=== PATIENT | female | born 1990 | race Caucasian/White ===

== ENCOUNTER 2021-03-02 11:56 | Emergency (ER) | payer OTHER ==
[2021-03-02 12:06] VITALS: BP 130/80
[2021-03-02] MEDS ORDERED: cephALEXin 250 MG CAPSULE PO STA (12:35)
--- NOTE | 2021-03-02 12:36 | ED Physician Documentation ---
History of Present Illness - Stated complaint Stated Complaint: NECK PX - Chief complaint Chief Complaint: General - History obtained from History obtained from: Patient - History of Present Illness Timing: How many days ago (4) Pain level max: 3 Pain level now: 3 - Additonal information Additional information: 30-year-old female presents to the emergency department stating she had acupuncture done about 4 days ago. She has noticed that there has been redness on the sides of her neck where the acupuncture needles were. She states they have been warm to the touch and painful as well. No drainage. Nothing makes it better or worse. She currently is undergoing IVF. No fevers. No chills. No numbness or tingling. Review of Systems Constitutional: denies: Fever, Chills Ears: denies: Ear pain Nose: denies: Rhinorrhea / runny nose, Congestion Throat: denies: Sore throat Cardiac: denies: Chest pain / pressure, Palpitations Respiratory: denies: Dyspnea, Cough GI: denies: Vomiting, Diarrhea Skin: denies: Rash Musculoskeletal: denies: Neck pain, Back pain Neurologic: denies: Headache PD PAST MEDICAL HISTORY - Past Medical History Past Medical History: No - Past Surgical History Past Surgical History: No - Present Medications Home Medications: Ambulatory Orders Medication Instructions Recorded Confirmed cephALEXin [Keflex] 500 mg PO Q6H #28 cap 03/02/21 - Allergies Allergies/Adverse Reactions: Allergies Allergy/AdvReac Type Severity Reaction Status Date / Time No Known Drug Allergies Allergy Verified 03/02/21 12:02 - Social History Does the pt smoke?: No Smoking Status: Never smoker Does the pt drink ETOH?: No Does the pt have substance abuse?: No - Immunizations Immunizations are current?: Yes - POLST Patient has POLST: No PD ED PE NORMAL - Vitals Vital signs reviewed: Yes - General General: Alert and oriented X 3, No acute distress - HEENT HEENT: Ears normal, Moist mucous membranes, Pharynx benign - Neck Neck: Supple, no meningeal sign, Other (No mastoid tenderness. Normal ear exam. Mild erythema to the posterior lateral aspect of the left and right sides of the neck. No drainage.) - Cardiac Cardiac: RRR - Respiratory Respiratory: No respiratory distress, Clear bilaterally - Abdomen Abdomen: Soft, Non tender, Non distended - Back Back: No spinal TTP - Derm Derm: Warm and dry - Extremities Extremities: Normal ROM s pain - Neuro Neuro: Alert and oriented X 3 Results - Vitals Vitals: Vital Signs - 24 hr 03/02/21 12:02 Temperature 36.5 C Heart Rate 98 Respiratory 16 Rate Blood Pressure 130/80 O2 Saturation 100 Oxygen O2 Source Room air PD MEDICAL DECISION MAKING - ED course Complexity details: considered differential, d/w patient ED course: Patient with what appears to be a mild cellulitis following acupuncture. Will place on Keflex. No evidence of abscess. No evidence of mastoiditis. Patient counseled regarding signs and symptoms for which I believe and urgent re- evaluation would be necessary. Patient with good understanding of and agreement to plan and is comfortable going home at this time This document was made in part using voice recognition software. While efforts are made to proofread this document, sound alike and grammatical errors may occur. Departure - Departure Disposition: 01 Home, Self Care Clinical Impression: Cellulitis Qualifiers: Site of cellulitis: unspecified site Qualified Code(s): L03.90 - Cellulitis, unspecified Condition: Good Instructions: ED Infec Skin Cellulitis Follow-Up: AMBER MOHR ARNP [Primary Care Provider] - Within 1 week Prescriptions: cephALEXin [Keflex] 500 mg PO Q6H #28 cap Comments: Take all antibiotics until gone. This should start to improve over the next 24 to 48 hours. Return if you worsen. Discharge Date/Time: 03/02/21 12:47
== END 2021-03-02 12:47 | disposition home or self-care (01) ==
LOC: ED 11:56
DX: L03.221 Cellulitis of neck (principal); Z98.890 Other specified postprocedural states
CPT/HCPCS: 99282; 99284; A9270

== ENCOUNTER 2021-05-08 08:00 | Outpatient (CLI) | payer OTHER ==
[2021-05-08 16:13] LABS: MUDS CUTOFF CONCENTRATIONS CUTOFF CONC BELOW:
[2021-05-08 16:17] LABS: BILIRUBIN,URINE NEGATIVE (NEGATIVE); GLUCOSE, URINE (UA) NEGATIVE (NEGATIVE); KETONES,URINE (UA) NEGATIVE (NEGATIVE); LEUKOCYTE ESTERASE, URINE NEGATIVE (NEGATIVE); NITRITE,URINE NEGATIVE (NEGATIVE); OCCULT BLOOD,URINE NEGATIVE (NEGATIVE); PROTEIN,URINE NEGATIVE (NEGATIVE); UROBILINOGEN,URINE 0.2 (NORMAL) E.U./dL (NORMAL)
[2021-05-08 16:28] LABS: CLARITY,URINE CLEAR (CLEAR)
[2021-05-08 16:29] LABS: BACTERIA,URINE Moderate /HPF (None Seen); RBC,URINE None Seen /HPF (0-5); SQUAMOUS EPITHELIAL CELL,UR FEW Squamous (<= Few); WBC,URINE 0-3 /HPF (0-5)
[2021-05-08 16:45] LABS: AMPHETAMINE SCREEN,URINE NEGATIVE (NEGATIVE); BARBITURATE SCREEN,UR NEGATIVE (NEGATIVE); BENZODIAZEPINES SCREEN, URINE NEGATIVE (NEGATIVE); COCAINE SCREEN URINE NEGATIVE (NEGATIVE); METHADONE SCREEN, URINE NEGATIVE (NEGATIVE); METHAMPHETAMINES SCREEN, URINE NEGATIVE (NEGATIVE); OPIATE SCREEN, URINE NEGATIVE (NEGATIVE); OXYCODONE SCREEN, URINE NEGATIVE (NEGATIVE); PROPOXYPHENE SCREEN, URINE NEGATIVE (NEGATIVE); THC CANNABINOID SCREEN, URINE NEGATIVE (NEGATIVE); TRICYCLIC ANTIDEPRESSANT,URINE NEGATIVE (NEGATIVE)
[2021-05-08 21:15] LABS: CHLAMYDIA TRACHOMATIS DNA NEGATIVE (NEGATIVE); NEISSERIA GONORRHOEAE DNA NEGATIVE (NEGATIVE); TRICHOMONAS VAGINALIS DNA NEGATIVE (NEGATIVE)
== END 2021-05-08 08:01 | disposition home or self-care (01) ==
LOC: LAB.WC 08:00
PROVIDERS: ATTEND Advanced Practice Midwife
DX: Z34.90 Encounter for supervision of normal pregnancy, unspecified, unspecified trimester (principal)
CPT/HCPCS: 80306; 81001; 87086; 87491; 87591; 87661

== ENCOUNTER 2021-05-28 08:00 | Outpatient (CLI) | payer OTHER ==
[2021-05-28 16:19] LABS: BILIRUBIN,URINE NEGATIVE (NEGATIVE); GLUCOSE, URINE (UA) NEGATIVE (NEGATIVE); KETONES,URINE (UA) NEGATIVE (NEGATIVE); LEUKOCYTE ESTERASE, URINE NEGATIVE (NEGATIVE); NITRITE,URINE NEGATIVE (NEGATIVE); OCCULT BLOOD,URINE NEGATIVE (NEGATIVE); PH,URINE 6.5 PH (5.0-7.5); PROTEIN,URINE NEGATIVE (NEGATIVE); UROBILINOGEN,URINE 0.2 (NORMAL) E.U./dL (NORMAL)
[2021-05-28 16:20] LABS: BACTERIA,URINE Few /HPF (None Seen); CLARITY,URINE CLEAR (CLEAR); RBC,URINE 0-5 /HPF (0-5); SQUAMOUS EPITHELIAL CELL,UR FEW Squamous (<= Few); WBC,URINE 0-3 /HPF (0-5)
[2021-05-28 20:12] LABS: BACTERIAL VAGINOSIS DNA NEGATIVE (NEGATIVE); CANDIDA GLABRATA DNA NEGATIVE (NEGATIVE); CANDIDA GROUP DNA NEGATIVE (NEGATIVE); CANDIDA KRUSEI DNA NEGATIVE (NEGATIVE); TRICHOMONAS VAGINALIS DNA NEGATIVE (NEGATIVE)
== END 2021-05-28 23:59 | disposition home or self-care (01) ==
LOC: LAB.WC 08:00
PROVIDERS: ATTEND Obstetrics & Gynecology
DX: N76.0 Acute vaginitis (principal)
CPT/HCPCS: 81001; 87086; 87661; 87801

== ENCOUNTER 2021-05-28 10:41 | Outpatient (CLI) | payer OTHER ==
[2021-05-28 11:25] LABS: BASOPHILS % (AUTO) 0.2 %; EOSINOPHILS # (AUTO) 0.1 10^3/uL (0.0-0.7); EOSINOPHILS % (AUTO) 1.4 %; HCT - HEMATOCRIT 37.9 % (37.0-47.0); HGB - HEMOGLOBIN 13.2 g/dL (12.0-16.0); LYMPHOCYTES # (AUTO) 1.6 10^3/uL (1.5-3.5); LYMPHOCYTES % (AUTO) 17.6 %; MEAN CORPUSCULAR HEMOGLOBIN 32.5 pg (27.0-31.0); MEAN CORPUSCULAR HGB CONC 34.8 g/dL (32.0-36.0); MEAN CORPUSCULAR VOLUME 93.3 fL (81.0-99.0); MEAN PLATELET VOLUME 9.7 fL (7.9-10.8); MONOCYTES # (AUTO) 0.7 10^3/uL (0.0-1.0); MONOCYTES % (AUTO) 7.7 %; NEUTROPHILS # (AUTO) 6.4 10^3/uL (1.5-6.6); NEUTROPHILS % (AUTO) 72.9 %; PLT - PLATELET COUNT 214 10^3/uL (130-450); RED BLOOD COUNT 4.06 10^6/uL (4.20-5.40); RED CELL DISTRIBUTION WIDTH 12.1 % (12.0-15.0); WHITE BLOOD COUNT 8.8 x10^3/uL (4.8-10.8)
[2021-05-29 12:17] LABS: HEPATITIS B SURFACE ANTIGEN NON-REACTIVE (NON-REACTIVE); HEPATITIS C ANTIBODY NON-REACTIVE (NON-REACTIVE)
[2021-05-29 15:11] LABS: HIV AG/AB 4TH GEN NON-REACTIVE (NON-REACTIVE)
== END 2021-05-28 10:42 | disposition home or self-care (01) ==
LOC: LAB 10:41
PROVIDERS: ATTEND Advanced Practice Midwife
DX: Z34.90 Encounter for supervision of normal pregnancy, unspecified, unspecified trimester (principal)
CPT/HCPCS: 36415; 81001; 81599; 82105; 85025; 86592; 86762; 86787; 86803; 86850; 86900; 86901; 87086; 87340; 87389

== ENCOUNTER 2021-09-02 08:30 | Outpatient (CLI) | payer OTHER ==
[2021-09-02 09:53] LABS: HCT - HEMATOCRIT 34.1 % (37.0-47.0); HGB - HEMOGLOBIN 11.3 g/dL (12.0-16.0); MEAN CORPUSCULAR HEMOGLOBIN 32.8 pg (27.0-31.0); MEAN CORPUSCULAR HGB CONC 33.1 g/dL (32.0-36.0); MEAN CORPUSCULAR VOLUME 98.8 fL (81.0-99.0); MEAN PLATELET VOLUME 9.8 fL (7.9-10.8); RED BLOOD COUNT 3.45 10^6/uL (4.20-5.40); RED CELL DISTRIBUTION WIDTH 13.2 % (12.0-15.0); WHITE BLOOD COUNT 7.6 x10^3/uL (4.8-10.8)
== END 2021-09-02 08:31 | disposition home or self-care (01) ==
LOC: LAB 08:30
PROVIDERS: ATTEND Obstetrics & Gynecology
DX: O09.90 Supervision of high risk pregnancy, unspecified, unspecified trimester (principal)
CPT/HCPCS: 36415; 82950; 85027

== ENCOUNTER 2021-09-30 16:04 | Outpatient (CLI) | payer OTHER ==
[2021-09-30 17:24] VITALS: BP 129/83
== END 2021-09-30 17:00 | disposition home or self-care (01) ==
LOC: WFO 16:04 → FBP 16:05 → WFO 17:00
PROVIDERS: ATTEND Obstetrics & Gynecology
DX: O09.90 Supervision of high risk pregnancy, unspecified, unspecified trimester (principal); Z3A.00 Weeks of gestation of pregnancy not specified; Z79.01 Long term (current) use of anticoagulants
CPT/HCPCS: 59025

== ENCOUNTER 2021-10-06 09:33 | Outpatient (CLI) | payer OTHER ==
[2021-10-06 09:52] VITALS: BP 116/64
--- NOTE | 2021-10-06 23:35 | PROCEDURE REPORT ---
- HPI Diagnosis/Indication for NST: Other (anticoagulation) Current EDU 11/26/20 Gestation 84 Weeks and 6 Days 5 Para 0 Vital Signs Temperature 98.2 F 10/06/21 09:50 Heart Rate 102 H 10/06/21 09:50 Respiratory Rate 18 10/06/21 09:50 Blood Pressure 116/64 10/06/21 09:50 Temperature 98.2 F 10/06/21 09:50 Heart Rate 98 10/06/21 09:59 Respiratory Rate 18 10/06/21 09:59 Blood Pressure 116/64 10/06/21 09:59 O2 Saturation 100 10/06/21 09:59 - NST Procedure NST Procedure Start Date 10/06/21 Start Time 09:45 Stop Time 10:45 Vibroacoustic Stimulation Used No Patient States Movement Yes EFM 135 mod sanjeev 15x15 accels no decels TOCO: quiet - Results and Plan Findings/Impression: Patient is a 31 yo at 31+6 wga with a complicated by anticoagulation therapy here for NST Cat I tracing Cont with twice weekly NST and weekly JOY DOS: 10/06/21 NST read 10/06/21 DX: IUP at 31+6 wga anticoagulation therapy
== END 2021-10-06 11:05 | disposition home or self-care (01) ==
LOC: WFO 09:33 → FBP 09:36 → WFO 11:05
PROVIDERS: ATTEND Obstetrics & Gynecology
DX: O09.893 Supervision of other high risk pregnancies, third trimester (principal); Z3A.34 34 weeks gestation of pregnancy; Z79.01 Long term (current) use of anticoagulants
CPT/HCPCS: 59025

== ENCOUNTER 2021-10-09 09:26 | Outpatient (CLI) | payer OTHER ==
[2021-10-09 09:50] VITALS: BP 111/69
--- NOTE | 2021-10-09 10:07 | PROCEDURE REPORT ---
- HPI Vital Signs Temperature 98.8 F 10/09/21 09:43 Heart Rate 99 10/09/21 09:43 Respiratory Rate 16 10/09/21 09:43 Blood Pressure 111/69 10/09/21 09:43 O2 Saturation 100 10/09/21 09:43 Temperature 98.8 F 10/09/21 09:43 Heart Rate 99 10/09/21 09:43 Respiratory Rate 16 10/09/21 09:43 Blood Pressure 111/69 10/09/21 09:43 O2 Saturation 100 10/09/21 09:43 - NST Procedure NST Procedure Start Time 09:45 Stop Time 10:45 - Results and Plan Findings/Impression: Patient is a 31-year-old G5, P0 at 32 weeks 2 days gestation here for scheduled NST. NST Performed 10/09/2021 NST Read 10/09/2021 FHT: 135 bpm baseline, moderate variability, accelerations present, no decelerations. [place]: Quiescent Diagnosis 32 weeks gestation Anticoagulation therapy Category 1 tracing Continue with twice weekly NST.
== END 2021-10-09 10:06 | disposition home or self-care (01) ==
LOC: WFO 09:26 → FBP 09:29 → WFO 10:06
PROVIDERS: ATTEND Obstetrics & Gynecology
DX: O09.893 Supervision of other high risk pregnancies, third trimester (principal); Z3A.32 32 weeks gestation of pregnancy; Z79.01 Long term (current) use of anticoagulants
CPT/HCPCS: 59025

== ENCOUNTER 2021-10-13 09:26 | Outpatient (CLI) | payer OTHER ==
[2021-10-13 10:22] VITALS: BP 130/67
--- NOTE | 2021-10-13 18:28 | PROCEDURE REPORT ---
- HPI Diagnosis/Indication for NST: Other (anticoagulation) Current EDU 11/26/21 Gestation 33 Weeks and 5 Days 5 Para 0 Vital Signs Temperature 98.2 F 10/13/21 09:37 Heart Rate 90 10/13/21 09:37 Respiratory Rate 18 10/13/21 09:37 Blood Pressure 130/67 10/13/21 09:37 O2 Saturation 100 10/13/21 09:37 Temperature 98.2 F 10/13/21 09:37 Heart Rate 90 10/13/21 09:37 Respiratory Rate 18 10/13/21 09:37 Blood Pressure 130/67 10/13/21 09:37 O2 Saturation 100 10/13/21 09:37 - NST Procedure NST Procedure Start Date 10/13/21 Start Time 09:37 Stop Time 10:04 Vibroacoustic Stimulation Used Yes Patient States Movement Yes EFM 145 mod sanjeev 15x15 accels no decels TOCO: quiet - Results and Plan Plan: Patient is a 31 yo at 33+5 wga with a complicated by anticoagulation therapy here for NST Cat I tracing Cont with twice weekly NST and weekly JOY DOS: 10/13/21 NST read 10/13/21 DX: IUP at 33+5 wga anticoagulation therapy
== END 2021-10-13 10:15 | disposition home or self-care (01) ==
LOC: WFO 09:26 → FBP 09:30 → WFO 10:15
PROVIDERS: ATTEND Obstetrics & Gynecology
DX: O09.893 Supervision of other high risk pregnancies, third trimester (principal); Z79.01 Long term (current) use of anticoagulants; Z3A.33 33 weeks gestation of pregnancy
CPT/HCPCS: 59025

== ENCOUNTER 2021-10-16 09:33 | Outpatient (CLI) | payer OTHER ==
[2021-10-16 09:54] VITALS: BP 128/59
--- NOTE | 2021-10-16 14:24 | PROCEDURE REPORT ---
- HPI Diagnosis/Indication for NST: Other (History of loss, on anticoagulation) Current EDU 11/26/21 Gestation 34 Weeks and 1 Days 5 Para 0 Vital Signs Temperature 98.1 F 10/16/21 09:36 Temperature 98.4 F 10/16/21 09:40 Heart Rate 99 10/16/21 09:40 Respiratory Rate 20 10/16/21 09:40 Blood Pressure 128/59 L 10/16/21 09:40 O2 Saturation 98 10/16/21 09:40 - NST Procedure NST Procedure Start Date 10/16/21 Start Time 09:39 Stop Time 10:03 Vibroacoustic Stimulation Used No Patient States Movement Yes - Results and Plan Findings/Impression: heart rate baseline-130beats per minutes Moderate variability Accelerations noted Decelerations none Contractions rare NST reactive and reassuring
== END 2021-10-16 10:03 | disposition home or self-care (01) ==
LOC: WFO 09:33 → FBP 09:35 → WFO 10:03
PROVIDERS: ATTEND Obstetrics & Gynecology
DX: O09.293 Supervision of pregnancy with other poor reproductive or obstetric history, third trimester (principal); Z3A.34 34 weeks gestation of pregnancy; Z79.01 Long term (current) use of anticoagulants
CPT/HCPCS: 59025

== ENCOUNTER 2021-10-20 09:27 | Outpatient (CLI) | payer OTHER ==
[2021-10-20 09:45] VITALS: BP 112/75
--- NOTE | 2021-10-20 10:10 | PROCEDURE REPORT ---
- HPI Diagnosis/Indication for NST: Other (Anticoagulation therapy, 34 weeks 5 days) Vital Signs Temperature 99.0 F 10/20/21 09:42 Heart Rate 99 10/20/21 09:42 Respiratory Rate 18 10/20/21 09:42 Blood Pressure 112/75 10/20/21 09:42 O2 Saturation 100 10/20/21 09:42 Temperature 99.0 F 10/20/21 09:42 Heart Rate 99 10/20/21 09:42 Respiratory Rate 18 10/20/21 09:42 Blood Pressure 112/75 10/20/21 09:42 O2 Saturation 100 10/20/21 09:42 - NST Procedure NST Procedure Start Time 09:39 Stop Time 10:03 - Results and Plan Findings/Impression: heart rate baseline- 140beats per minutes Moderate variability Accelerations: 15 x 15 Decelerations: none Contractions: none, irritability NST reactive and reassuring
== END 2021-10-20 10:08 | disposition home or self-care (01) ==
LOC: WFO 09:27 → FBP 09:31 → WFO 10:08
PROVIDERS: ATTEND Obstetrics & Gynecology
DX: O09.893 Supervision of other high risk pregnancies, third trimester (principal); Z3A.34 34 weeks gestation of pregnancy; Z79.01 Long term (current) use of anticoagulants
CPT/HCPCS: 59025; 99213

== ENCOUNTER 2021-10-23 09:28 | Outpatient (CLI) | payer OTHER ==
[2021-10-23 09:40] VITALS: BP 126/69
--- NOTE | 2021-10-23 10:33 | PROCEDURE REPORT ---
- HPI Diagnosis/Indication for NST: Other (Anticoagulation therapy) Current EDU 11/26/21 Gestation 35 Weeks and 1 Days 5 Para 0 Vital Signs Temperature 98.2 F 10/23/21 09:38 Heart Rate 105 H 10/23/21 09:38 Respiratory Rate 16 10/23/21 09:38 Blood Pressure 126/69 10/23/21 09:38 O2 Saturation 100 10/23/21 09:38 Temperature 98.2 F 10/23/21 09:38 Heart Rate 105 H 10/23/21 09:38 Respiratory Rate 16 10/23/21 09:38 Blood Pressure 126/69 10/23/21 09:38 O2 Saturation 100 10/23/21 09:38 - NST Procedure NST Procedure Start Date 10/23/21 Start Time 09:37 Stop Time 10:00 Vibroacoustic Stimulation Used No Patient States Movement Yes - Results and Plan Findings/Impression: Patient is a 31-year-old G5, P0 at 35 weeks 1 day gestation here for scheduled NST. NST Performed 10/23/2021 NST Read 10/23/2021 FHT: 130 beats per baseline, moderate variability, accelerations present, no decelerations. [place]: Irritable Diagnosis 35 weeks gestation Anticoagulation therapy Continue with twice weekly NST. Reactive NST.
== END 2021-10-23 10:05 | disposition home or self-care (01) ==
LOC: WFO 09:28 → FBP 09:35 → WFO 10:05
PROVIDERS: ATTEND Obstetrics & Gynecology
DX: O09.893 Supervision of other high risk pregnancies, third trimester (principal); Z3A.35 35 weeks gestation of pregnancy; Z79.01 Long term (current) use of anticoagulants
CPT/HCPCS: 59025

== ENCOUNTER 2021-10-27 09:54 | Outpatient (CLI) | payer OTHER ==
[2021-10-27 10:18] VITALS: BP 115/77
--- NOTE | 2021-10-27 19:34 | PROCEDURE REPORT ---
- HPI Diagnosis/Indication for NST: Other (anticoagulation) Current EDU 11/26/21 Gestation 35 Weeks and 5 Days 5 Para 0 Vital Signs Temperature 98.2 F 10/27/21 10:08 Heart Rate 105 H 10/27/21 10:08 Respiratory Rate 16 10/27/21 10:08 Blood Pressure 115/77 10/27/21 10:08 Temperature 98.2 F 10/27/21 10:15 Heart Rate 105 H 10/27/21 10:15 Respiratory Rate 16 10/27/21 10:15 Blood Pressure 115/77 10/27/21 10:15 O2 Saturation 100 10/27/21 10:15 - NST Procedure NST Procedure Start Date 10/27/21 Start Time 10:02 Stop Time 10:23 Vibroacoustic Stimulation Used No Patient States Movement Yes EFM 145 mod sanjeev 15x15 accels no decels TOCOL irritable - Results and Plan Plan: Patient is a 31 yo at 35+5 wga with a complicated by anticoagulation therapy here for NST Cat I tracing Cont with twice weekly NST and weekly JOY DOS: 10/27/21 NST read 10/27/21 DX: IUP at 35+5 wga anticoagulation therapy
== END 2021-10-27 10:30 | disposition home or self-care (01) ==
LOC: WFO 09:54 → FBP 09:56 → WFO 10:30
PROVIDERS: ATTEND Obstetrics & Gynecology
DX: O09.893 Supervision of other high risk pregnancies, third trimester (principal); Z79.01 Long term (current) use of anticoagulants; Z3A.35 35 weeks gestation of pregnancy
CPT/HCPCS: 59025

== ENCOUNTER 2021-10-29 08:00 | Outpatient (CLI) | payer OTHER | END 2021-10-29 23:59 | disposition home or self-care (01) | LOC: LAB.WC 08:00 | PROVIDERS: ATTEND Obstetrics & Gynecology | DX: Z36.85 Encounter for antenatal screening for Streptococcus B (principal) | CPT/HCPCS: 87797 ==

== ENCOUNTER 2021-10-30 09:42 | Outpatient (CLI) | payer OTHER ==
[2021-10-30 10:05] VITALS: BP 124/78
--- NOTE | 2021-10-30 17:14 | PROCEDURE REPORT ---
- HPI Diagnosis/Indication for NST: Other (Anticoagulant therapy) Current EDU 11/26/21 Gestation 36 Weeks and 1 Days 5 Para 0 Vital Signs Temperature 98.2 F 10/30/21 09:58 Temperature 98.2 F 10/30/21 10:04 Heart Rate 96 10/30/21 10:04 Respiratory Rate 17 10/30/21 10:04 Blood Pressure 124/78 10/30/21 10:04 O2 Saturation 99 10/30/21 10:04 - NST Procedure NST Procedure Start Date 10/30/21 Start Time 09:53 Stop Time 10:16 Vibroacoustic Stimulation Used No Patient States Movement Yes - Results and Plan Findings/Impression: Patient is a here for scheduled NST. NST Performed 10/30/2021 NST Read 10/30/2021 FHT: 130 bpm baseline, moderate variability, accelerations present, no decelerations. [place]: Quiescent Diagnosis 36 weeks gestation Anticoagulant therapy Continue with twice weekly NST.
== END 2021-10-30 10:25 | disposition home or self-care (01) ==
LOC: WFO 09:42 → FBP 09:49 → WFO 10:25
PROVIDERS: ATTEND Obstetrics & Gynecology
DX: O09.893 Supervision of other high risk pregnancies, third trimester (principal); Z79.01 Long term (current) use of anticoagulants; Z3A.36 36 weeks gestation of pregnancy
CPT/HCPCS: 59025

== ENCOUNTER 2021-11-03 09:32 | Outpatient (CLI) | payer OTHER ==
[2021-11-03 10:07] VITALS: BP 117/75
--- NOTE | 2021-11-03 10:31 | PROCEDURE REPORT ---
- HPI Vital Signs Temperature 98.4 F 11/03/21 10:04 Heart Rate 100 11/03/21 10:04 Respiratory Rate 18 11/03/21 10:04 Blood Pressure 117/75 11/03/21 10:04 Temperature 98.4 F 11/03/21 10:04 Heart Rate 100 11/03/21 10:04 Respiratory Rate 18 11/03/21 10:04 Blood Pressure 117/75 11/03/21 10:04 O2 Saturation - NST Procedure NST Procedure Start Time 09:53 Stop Time 10:16 - Results and Plan Findings/Impression: Patient is a 31-year-old G5, P0 at 36 weeks 5 days gestation here for scheduled NST. NST Performed 11/03/2021 NST Read 11/03/2021 FHT: 135 beats per baseline, moderate variability, accelerations present, no decelerations [place]: Irregular, unchanged from prior Diagnosis 36 weeks Anticoagulation therapy Reactive NST Continue with twice weekly NST.
== END 2021-11-03 10:45 | disposition home or self-care (01) ==
LOC: FBP 09:32 → WFO 09:32
PROVIDERS: ATTEND Obstetrics & Gynecology
DX: O09.893 Supervision of other high risk pregnancies, third trimester (principal); Z3A.36 36 weeks gestation of pregnancy; Z79.01 Long term (current) use of anticoagulants
CPT/HCPCS: 59025; 99213

== ENCOUNTER 2021-11-10 09:35 | Outpatient (CLI) | payer OTHER ==
[2021-11-10 09:50] VITALS: BP 117/73
--- NOTE | 2021-11-26 14:55 | PROCEDURE REPORT ---
- HPI Diagnosis/Indication for NST: Other (anticoagulation) Current EDU 11/26/21 Gestation 37 Weeks and 5 Days 5 Para 0 Vital Signs Temperature 98.2 F 11/10/21 09:48 Heart Rate 100 11/10/21 09:48 Respiratory Rate 18 11/10/21 09:48 Blood Pressure 117/73 11/10/21 09:48 Temperature 98.2 F 11/10/21 09:51 Heart Rate 100 11/10/21 09:51 Respiratory Rate 18 11/10/21 09:51 Blood Pressure 117/73 11/10/21 09:51 O2 Saturation 100 11/10/21 09:49 - NST Procedure NST Procedure Start Date 11/10/21 Start Time 09:46 Stop Time 10:24 Vibroacoustic Stimulation Used No Patient States Movement Yes EFM 130 mod sanjeev 15x15 accels no decels TOCO: irritable - Results and Plan Plan: - Results and Plan Plan: Patient is a 31 yo at 37+5 wga with a complicated by anticoagulation therapy here for NST Cat I tracing Cont with twice weekly NST and weekly JOY DOS: 11/10/21 NST read 11/10/21 DX: IUP at 37+5 wga anticoagulation therapy
== END 2021-11-10 10:30 | disposition home or self-care (01) ==
LOC: WFO 09:35 → FBP 09:41 → WFO 10:30
PROVIDERS: ATTEND Obstetrics & Gynecology
DX: O09.893 Supervision of other high risk pregnancies, third trimester (principal); Z3A.37 37 weeks gestation of pregnancy; Z79.01 Long term (current) use of anticoagulants
CPT/HCPCS: 59025; 99213

== ENCOUNTER 2021-11-13 09:39 | Outpatient (CLI) | payer OTHER ==
[2021-11-13 10:04] VITALS: BP 118/77
--- NOTE | 2021-11-13 13:23 | PROCEDURE REPORT ---
- HPI Diagnosis/Indication for NST: Other (Anticoagulation therapy) Current EDU 11/26/21 Gestation 38 Weeks and 1 Days 5 Para 0 Vital Signs Temperature 97.9 F 11/13/21 10:02 Heart Rate 109 H 11/13/21 10:02 Respiratory Rate 16 11/13/21 10:02 Blood Pressure 118/77 11/13/21 10:02 O2 Saturation 100 11/13/21 10:02 Temperature 97.9 F 11/13/21 10:02 Heart Rate 109 H 11/13/21 10:02 Respiratory Rate 16 11/13/21 10:02 Blood Pressure 118/77 11/13/21 10:02 O2 Saturation 100 11/13/21 10:02 - NST Procedure NST Procedure Start Date 11/13/21 Start Time 09:45 Stop Time 10:11 Vibroacoustic Stimulation Used No Patient States Movement Yes - Results and Plan Plan: Patient is a 31-year-old G5, P0 at 38 weeks 1 day gestation here for scheduled NST. NST Performed 11/13/2021 NST Read 11/13/21 FHT:125 beats per baseline, moderate variability, accelerations present, no decelerations. [place]: Quiescent Diagnosis 38 weeks gestation Anticoagulation therapy Reactive NST Continue with twice weekly NST.
== END 2021-11-13 10:15 | disposition home or self-care (01) ==
LOC: WFO 09:39 → FBP 09:42 → WFO 10:15
PROVIDERS: ATTEND Obstetrics & Gynecology
DX: O09.893 Supervision of other high risk pregnancies, third trimester (principal); Z3A.38 38 weeks gestation of pregnancy; Z79.01 Long term (current) use of anticoagulants
CPT/HCPCS: 59025

== ENCOUNTER 2021-11-17 09:38 | Outpatient (CLI) | payer OTHER ==
--- NOTE | 2021-11-17 11:37 | PROCEDURE REPORT ---
- NST Procedure NST Procedure Start Time 09:45 Stop Time 10:11 - Results and Plan Plan: Patient is a 31-year-old -0-4-0 at 38 weeks 5 days gestation here for scheduled NST. NST Performed 11/17/2021 NST Read 11/17/2021 FHT: 135 beats per baseline, moderate variability, accelerations present, no decelerations. [place]: Quiescent Diagnosis 38 weeks gestation Anticoagulation use Reactive NST Continue with twice weekly NST.
[2021-11-17 11:46] VITALS: BP 113/71
== END 2021-11-17 11:00 | disposition home or self-care (01) ==
LOC: WFO 09:38 → FBP 09:42 → WFO 11:00
PROVIDERS: ATTEND Obstetrics & Gynecology
DX: O09.893 Supervision of other high risk pregnancies, third trimester (principal); Z3A.38 38 weeks gestation of pregnancy; Z79.01 Long term (current) use of anticoagulants
CPT/HCPCS: 59025

== ENCOUNTER 2021-11-20 09:33 | Outpatient (CLI) | payer OTHER ==
--- NOTE | 2021-11-20 10:17 | PROCEDURE REPORT ---
- HPI Diagnosis/Indication for NST: Pre- Diabetes Vital Signs Temperature 98.5 F 11/20/21 09:52 Heart Rate 99 11/20/21 09:52 Respiratory Rate 18 11/20/21 09:52 Blood Pressure 117/74 11/20/21 09:52 Temperature 98.5 F 11/20/21 09:52 Heart Rate 99 11/20/21 09:52 Respiratory Rate 18 11/20/21 09:52 Blood Pressure 117/74 11/20/21 09:52 O2 Saturation - NST Procedure NST Procedure Start Time 10:00 Stop Time 10:27
[2021-11-20 10:35] VITALS: BP 117/74
--- NOTE | 2021-11-20 10:52 | PROCEDURE REPORT ---
- HPI Diagnosis/Indication for NST: Other (Anticoagulation therapy) Current EDU 11/26/21 Gestation 39 Weeks and 1 Days 5 Para 0 Vital Signs Temperature 98.5 F 11/20/21 09:45 Heart Rate 99 11/20/21 09:45 Respiratory Rate 18 11/20/21 09:45 Blood Pressure 117/74 11/20/21 09:45 O2 Saturation 98 11/20/21 09:45 Temperature 98.5 F 11/20/21 10:10 Heart Rate 99 11/20/21 10:10 Respiratory Rate 18 11/20/21 10:10 Blood Pressure 117/75 11/20/21 10:10 O2 Saturation 98 11/20/21 09:45 - NST Procedure NST Procedure Start Date 11/20/21 Start Time 09:40 Stop Time 10:01 Vibroacoustic Stimulation Used No Patient States Movement Yes - Results and Plan Plan: Patient is a 31-year-old -0-0-4 at 39 weeks 1 day gestation here for scheduled NST. NST Performed 11/20/2021 NST Read 11/20/2021 FHT: 125 beats minute baseline, moderate ability, accelerations present, no decelerations. [place]: Irregular Diagnosis 39 weeks gestation Anticoagulation therapy Reactive NST Continue with twice weekly NST.
== END 2021-11-20 10:28 | disposition home or self-care (01) ==
LOC: WFO 09:33 → FBP 09:37 → WFO 10:28
PROVIDERS: ATTEND Obstetrics & Gynecology
DX: O09.893 Supervision of other high risk pregnancies, third trimester (principal); Z3A.39 39 weeks gestation of pregnancy; Z79.01 Long term (current) use of anticoagulants
CPT/HCPCS: 59025

== ENCOUNTER 2021-11-24 09:36 | Outpatient (CLI) | payer OTHER ==
--- NOTE | 2021-11-24 10:26 | PROCEDURE REPORT ---
- HPI Diagnosis/Indication for NST: Other (Anticoagulation) Vital Signs Temperature 98.6 F 11/24/21 09:53 Temperature 98.6 F 11/24/21 09:53 Heart Rate Respiratory Rate Blood Pressure O2 Saturation - NST Procedure NST Procedure Start Time 09:40 Stop Time 10:01 Date performed 11/24/21 Date read 11/24/21 31yo at 39.6w presenting for NST, on anticoagulation 130s, moderate variability, no decelerations, positive accelerations One contraction, not appreciated by patient NST reactive Continue NST 2x weekly Follow up in office as scheduled
[2021-11-24 10:55] VITALS: BP 117/71
== END 2021-11-24 10:25 | disposition home or self-care (01) ==
LOC: WFO 09:36 → FBP 09:39 → WFO 10:25
PROVIDERS: ATTEND Obstetrics & Gynecology
DX: O09.893 Supervision of other high risk pregnancies, third trimester (principal); Z3A.39 39 weeks gestation of pregnancy; Z79.01 Long term (current) use of anticoagulants
CPT/HCPCS: 59025

== ENCOUNTER 2021-11-27 12:41 | Outpatient (CLI) | payer OTHER ==
[2021-11-27 13:11] VITALS: BP 126/79
--- NOTE | 2021-12-01 18:53 | PROCEDURE REPORT ---
- HPI Current EDU 11/26/21 Gestation 40 Weeks and 1 Days 5 Para 0 Vital Signs Temperature 98.1 F 11/27/21 13:07 Heart Rate 92 11/27/21 13:07 Respiratory Rate 16 11/27/21 13:07 Blood Pressure 126/79 11/27/21 13:07 O2 Saturation 100 11/27/21 13:07 Temperature 98.1 F 11/27/21 13:43 Heart Rate 92 11/27/21 13:43 Respiratory Rate 16 11/27/21 13:43 Blood Pressure 126/79 11/27/21 13:43 O2 Saturation 100 11/27/21 13:07 - NST Procedure NST Procedure Start Date 11/27/21 Start Time 12:47 Stop Time 13:24 Vibroacoustic Stimulation Used No Patient States Movement Yes EFM 125 mod sanjeev 15x15 accels no decels TOCO: intermittent - Results and Plan Plan: Patient is a 31 yo at 40+1 wga with a complicated by anticoagulation therapy here for NST Cat I tracing Cont with twice weekly NST and weekly JOY DOS: 11/27/21 NST read 11/27/21 DX: IUP at 40+1 wga anticoagulation therapy
== END 2021-11-27 13:30 | disposition home or self-care (01) ==
LOC: WFO 12:41 → FBP 12:43 → WFO 13:30
PROVIDERS: ATTEND Obstetrics & Gynecology
DX: O09.893 Supervision of other high risk pregnancies, third trimester (principal); Z3A.40 40 weeks gestation of pregnancy; Z79.01 Long term (current) use of anticoagulants
CPT/HCPCS: 59025

== ENCOUNTER 2021-12-01 10:16 | Observation (INO) | payer OTHER ==
[2021-12-01] MEDS ORDERED: LACTATED RINGERS 1,000 ML IV SCH (12:25)
[2021-12-01] MEDS ORDERED: ONDANSETRON ODT 4 MG TABLET TL PRN (12:25)
[2021-12-01] MEDS ORDERED: METOCLOPRAMIDE 10 MG TABLET PO PRN (12:25)
[2021-12-01] MEDS ORDERED: miSOPROStoL 100 MCG TABLET BC ONE (12:30)
--- NOTE | 2021-12-01 12:52 | HISTORY & PHYSICAL EXAMINATION ---
Admit History - Visit Reason Visit Reason: Other (outpatient cervical ripening) - Smoking Status: Never smoker - Mother's Labs Mother's Blood Type: positive: A Mother's RH: positive: Positive GBS: positive: Group B Step Negative Rubella Status: positive: Immune - Other Maternal History Other Maternal History: ID: 31 yo at 40+5 wga here for outpatient cervical ripening. HPI: Patient presents for outpatient cervical ripening. 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 Last dose of lovenox was last night at 21:00. Pending post- dates, wants to avoid prolonged IOL. Presents for outpatient misoprostol. Open to possibility of palumbo bulb placement after misoprostol. No concerns. No LOF/VB/CTX. Endorses FM. PNC: LMP: IVF JELLY by LMP: n/a Initial U/S: at 7.0wks for JELLY 11/26/2021 FINAL JELLY: 11/26/2021 Dating: Dating by IVF. Initial ultrasound at 7 weeks gives JELLY of 11/26/2021. A pos/Rub imm Genetic testing: [place] cell-free DNA denied by [employer] x2 -cfDNA conducted through [facility] wnl -The patient declined carrier screening. FAS at 20 weeks. -[employer] with low risk genetic profiling, anterior placenta, spine not well seen FU FAS with low concern for spine Glucola: 09/02/21 results :91 TDAP :09/10/2021 Influenza: DECLINED COVID: Dose #2 completed 07/31 GBS: 10/29/21 - NEGATIVE HSV: Denies self and partner. Breast pump Rx- 08/13/21 MOD: Anticipate . Wants to avoid IOL. On Lovenox but MFM ok with discontinuing. Will not need lovenox -Patient prefers to stay on lovenox and declines heparin. Reviewed risk of lovenox at time of labor. Confirmed plan with Anesthesia FOB/ Jameel. contraception: TBD. Pap: 12/15/2018 within normal limits. Past Medical History: Antiphospholipid syndrome- no record of positive test results. MFM states no need for Lovenox . Recurrent loss. Past Surgical History: Tonsillectomy and adenoidectomy. Oocyte retrieval. Family History Summary: VTE: cousin with antiphospholipid syndrome, maternal. Maternal aunts and maternal grandmother also with VTE. Cancer: Maternal grandfather with lung cancer in 50s to 60s. Paternal grandfather, affected at age 90, NOS. Hypertension: Paternal grandmother and paternal grandfather. CVD: Paternal grandmother with stent. Diabetes: Grandfather with prediabetes. Social History Summary: The patient lives in [place] with her . She is a teacher in the first grade. Partner is active duty [employer] and will be deployed from July to February of 2022. T: None. E: Socially. D: None. Safe at home. ROS: As per HPI, otherwise remaining systems negative. PE: VS: 93 18 127/74 GEN: NAD HEAD: NCAT EYES: No scleral icterus or conjunctival injection CV: RRR RESP: CTAB, normal effort ABD: S&NT/ND PSYCH: appropriate affect NEURO: alert and oriented, normal gait and coordination EXT: WWP BSUS confirmed vertex EFM 135 mod sanjeev 15x15 accels no decels--> Cat I tracing TOCO: intermittent A/P: 31 yo at 40+5 wga here for outpatient cervical ripening. -Confirmed vertex -GBS negative -Consented in clinic CERVICAL RIPENING: -Misoprostol 25 mcg BC x1 -Monitor for 4 hour -DC tohome if cat I tracing and not in labor -considering placement of Palumbo balloon after miso, will decide at 4 hour park -Plan to admit tomorrow for IOL ANTICOAGULATION: -Last dose of lovenox yesterday pm -Will hold Lovenox tonight FWB: vertex, well grown, Cat I tracing, GBS neg -CEFM while on unit Admit to observation Meds/Allgy - Home Medications Home Medications: Ambulatory Orders Medication Instructions Recorded Confirmed cephALEXin [Keflex] 500 mg PO Q6H #28 cap 03/02/21 - Allergies Allergies/Adverse Reactions: Allergies Allergy/AdvReac Type Severity Reaction Status Date / Time No Known Drug Allergies Allergy Verified 03/02/21 12:02
--- NOTE | 2021-12-01 18:49 | PROCEDURE REPORT ---
- HPI Diagnosis/Indication for NST: Other (outpatient cervical ripening) Current EDU 11/26/21 Gestation 40 Weeks and 5 Days 5 Para 0 Vital Signs Temperature 98.6 F 12/01/21 11:39 Temperature 98.6 F 12/01/21 11:39 Heart Rate Respiratory Rate Blood Pressure O2 Saturation - NST Procedure NST Procedure Start Date 12/01/21 Start Time 11:04 Stop Time 11:24 Vibroacoustic Stimulation Used No Patient States Movement Yes - Results and Plan Findings/Impression: Patient is a 31 yo at 40+5 wga with a complicated by anticoagulation therapy here outpatient cervical ripening with NST Cat I tracing Return for IOL tomorrow Warning signs reviewed Discharged to home DOS: 12/01/21 NST read 12/01/21 DX: IUP at 40+5 wga anticoagulation therapy
== END 2021-12-01 17:25 | disposition home or self-care (01) ==
LOC: WFO 10:16 → FBP 10:20 → WFO 12:30 → FBP 12:31
PROVIDERS: ADMIT Obstetrics & Gynecology; ATTEND Obstetrics & Gynecology
DX: O48.0 Post-term pregnancy (principal); Z3A.40 40 weeks gestation of pregnancy; Z20.822 Contact with and (suspected) exposure to COVID-19
CPT/HCPCS: 87635; A9270; G0378

== ENCOUNTER 2021-12-02 07:35 | Inpatient (IN) | payer OTHER ==
[2021-12-02] MEDS ORDERED: LACTATED RINGERS 400 ML CERVICA030 ONE (08:40)
[2021-12-02] MEDS ORDERED: OXYTOCIN/SODIUM CHLORIDE 500 ML IV PRN (08:40)
[2021-12-02] MEDS ORDERED: ACETAMINOPHEN 500 MG TABLET PO PRN (08:40)
[2021-12-02] MEDS ORDERED: TRANEXAMIC ACID IN NACL 1,000 MG/100 ML BAG IV PRN (08:40)
[2021-12-02] MEDS ORDERED: miSOPROStoL 200 MCG TABLET BC PRN (08:40)
[2021-12-02] MEDS ORDERED: METHYLERGONOVINE 0.2 MG/ML VIAL IM PRN (08:40)
[2021-12-02] MEDS ORDERED: CARBOPROST TROMETHAMINE 250 MCG/ML AMP IM PRN (08:40)
[2021-12-02] MEDS ORDERED: hydrALAZINE INJ 20 MG/ML VIAL IVP PRN (08:40)
[2021-12-02] MEDS ORDERED: OXYTOCIN 10 UNIT/ML VIAL IM PRN (08:40)
[2021-12-02] MEDS ORDERED: miSOPROStoL 200 MCG TABLET PR PRN (08:40)
[2021-12-02] MEDS ORDERED: LACTATED RINGERS 1,000 ML CERVICA030 PRN (08:40)
[2021-12-02] MEDS ORDERED: TERBUTALINE 1 MG/ML VIAL SUBQ PRN (08:40)
[2021-12-02] MEDS ORDERED: SODIUM CHLORIDE FLUSH 0.9% 10 ML SYRINGE IVP PRN (08:40)
[2021-12-02] MEDS ORDERED: LABETALOL 20 MG/4 ML SYRINGE IVP PRN ×2 (08:40)
[2021-12-02] MEDS ORDERED: LACTATED RINGERS 500 ML IV PRN (08:40)
[2021-12-02] MEDS ORDERED: LIDOCAINE-MPF 1% 30 ML VIAL ID PRN (08:40)
--- NOTE | 2021-12-02 08:47 | HISTORY & PHYSICAL EXAMINATION ---
Chief Complaint - Chief Complaint Chief Complaint: IOL at 40+6 wga History of Present Illness - History of Present Illness HPI Comment/Other: ID: 31 yo at 40+6 wga here for outpatient cervical ripening. HPI: Patient presents for induction of labor with cervical ripening. had one dose of miso as an outpatient on 12/01/21. 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 Last dose of lovenox was 11/30/21 at 21:00. Pending post-dates. GBS negative. No concerns. No LOF/VB. Having contractions but not uncomfortable. Endorses FM. PNC: LMP: IVF JELLY by LMP: n/a Initial U/S: at 7.0wks for JELLY 11/26/2021 FINAL JELLY: 11/26/2021 Dating: Dating by IVF. Initial ultrasound at 7 weeks gives JELLY of 11/26/2021. A pos/Rub imm Genetic testing: [place] cell-free DNA denied by x2 -cfDNA conducted through [facility] wnl -The patient declined carrier screening. FAS at 20 weeks. 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 Breast pump Rx- 08/13/21 MOD: Anticipate . Wants to avoid IOL. On Lovenox but MFM ok with discontinuing. Will not need lovenox -Patient prefers to stay on lovenox and declines heparin. Reviewed risk of lovenox at time of labor. Confirmed plan with Anesthesia FOB/ Jameel. contraception: TBD. Pap: 12/15/2018 within normal limits. Past Medical History: Antiphospholipid syndrome- no record of positive test results. MFM states no need for Lovenox . Recurrent loss. Past Surgical History: Tonsillectomy and adenoidectomy. Oocyte retrieval. Family History: VTE: cousin with antiphospholipid syndrome, maternal. Maternal aunts and maternal grandmother also with VTE. Cancer: Maternal grandfather with lung cancer in 50s to 60s. Paternal grandfather, affected at age 90, NOS. Hypertension: Paternal grandmother and paternal grandfather. CVD: Paternal grandmother with stent. Diabetes: Grandfather with prediabetes. Social History Summary: The patient lives in [place] with her . She is a teacher in the first grade. Partner is active duty [employer] and will be deployed from July to February of 2022. T: None. E: Socially. D: None. Safe at home. ROS: As per HPI, otherwise remaining systems negative. PE: VS: 99 18 121/78 37.1 GEN: NAD HEAD: NCAT EYES: No scleral icterus or conjunctival injection CV: RRR RESP: CTAB, normal effort ABD: S&NT/ND PSYCH: appropriate affect NEURO: alert and oriented, normal gait and coordination EXT: WWP BSUS confirmed vertex on us yesterday EFM 130 mod sanjeev 15x15 accels no decels--> Cat I tracing TOCO: intermittent A/P: 31 yo at 40+6 wga here for postdates IOL with cervical ripening. -Confirmed vertex -GBS negative -Consented in clinic CERVICAL RIPENING: -Misoprostol 25 mcg Q4H for 6 doses -considering placement of Guzman balloon after miso -Pitocin when favorable -AROM as appropriate ANTICOAGULATION: -Last dose of lovenox 11/30/21 pm -Will hold Lovenox tonight FWB: vertex, well grown, Cat I tracing, GBS neg -CEFM while on unit Admit to observation and convert to in-patient when active, ruptured, getting pitocin, or has epidural History - Past Medical History MRSA Hx?: No - POLST Patient has POLST: No Meds/Allgy - Home Medications Home Medications: Ambulatory Orders Medication Instructions Recorded Confirmed cephALEXin [Keflex] 500 mg PO Q6H #28 cap 03/02/21 - Allergies Allergies/Adverse Reactions: Allergies Allergy/AdvReac Type Severity Reaction Status Date / Time No Known Drug Allergies Allergy Verified 03/02/21 12:02
[2021-12-02] MEDS: miSOPROStoL 100 MCG TABLET BC SCH ×4 (09:23→21:33)
[2021-12-02 09:46] LABS: BASOPHILS # (AUTO) 0.1 10^3/uL (0.0-0.1); BASOPHILS % (AUTO) 0.6 %; EOSINOPHILS # (AUTO) 0.1 10^3/uL (0.0-0.7); EOSINOPHILS % (AUTO) 1.4 %; HCT - HEMATOCRIT 40.1 % (37.0-47.0); HGB - HEMOGLOBIN 13.4 g/dL (12.0-16.0); LYMPHOCYTES # (AUTO) 1.9 10^3/uL (1.5-3.5); MEAN CORPUSCULAR HEMOGLOBIN 32.1 pg (27.0-31.0); MEAN CORPUSCULAR HGB CONC 33.4 g/dL (32.0-36.0); MEAN CORPUSCULAR VOLUME 96.2 fL (81.0-99.0); MEAN PLATELET VOLUME 10.8 fL (7.9-10.8); MONOCYTES # (AUTO) 0.8 10^3/uL (0.0-1.0); MONOCYTES % (AUTO) 8.4 %; NEUTROPHILS # (AUTO) 6.9 10^3/uL (1.5-6.6); NEUTROPHILS % (AUTO) 70.1 %; PLT - PLATELET COUNT 181 10^3/uL (130-450); RED BLOOD COUNT 4.17 10^6/uL (4.20-5.40); RED CELL DISTRIBUTION WIDTH 12.7 % (12.0-15.0); WHITE BLOOD COUNT 9.8 x10^3/uL (4.8-10.8)
[2021-12-02 09:54] LABS: BILIRUBIN,TOTAL 0.5 mg/dL (0.2-1.0); CREATININE 0.7 mg/dL (0.4-1.0); POTASSIUM 3.8 mmol/L (3.5-5.0); TOTAL PROTEIN 6.1 g/dL (6.7-8.2)
--- NOTE | 2021-12-02 15:45 | PROVIDER PROGRESS NOTE ---
Subjective - Prog Note Date Prog Note Date: 12/02/21 Prog Note Time: 15:41 - Subjective Subjective: Patient was given second dose of miso today (third total in 24 hours) at 13:46. Still comfortable. Mild cramping. No LOF or VB. VS 98 119/86 ABD: Soft, NT/ND, gravid EFM 125 mod sanjeev 15x15 accels no decels TOCO: irreg, Q4-7 min A/P: IOL at 40+6 wga -Increase miso dose to 50 mcg for next dose -Cat I tracing Objective - Vital Signs/Intake & Output Vital Signs: Vital Signs x48h Temp 12/02/21 09:00 98.8 F - Lab Results Fish Bones: 12/02/21 09:05 12/02/21 09:05 Other Labs: Lab Results x24hrs 12/02/21 12/02/21 12/02/21 Range/Units 09:05 09:05 09:05 WBC 9.8 (4.8-10.8) x10^3/uL RBC 4.17 L (4.20-5.40) 10^6/uL Hgb 13.4 (12.0-16.0) g/dL Hct 40.1 (37.0-47.0) % MCV 96.2 (81.0-99.0) fL MCH 32.1 H (27.0-31.0) pg MCHC 33.4 (32.0-36.0) g/dL RDW 12.7 (12.0-15.0) % Plt Count 181 (130-450) 10^3/uL MPV 10.8 (7.9-10.8) fL Neut # (Auto) 6.9 H (1.5-6.6) 10^3/uL Lymph # (Auto) 1.9 (1.5-3.5) 10^3/uL [place] # (Auto) 0.8 (0.0-1.0) 10^3/uL Eos # (Auto) 0.1 (0.0-0.7) 10^3/uL Baso # (Auto) 0.1 (0.0-0.1) 10^3/uL Absolute Nucleated RBC 0.00 x10^3/uL Nucleated RBC % 0.0 /100WBC Sodium 134 L (135-145) mmol/L Potassium 3.8 (3.5-5.0) mmol/L Chloride 104 (101-111) mmol/L Carbon Dioxide 21 (21-32) mmol/L Anion Gap 9.0 (6-13) BUN 10 (6-20) mg/dL Creatinine 0.7 (0.4-1.0) mg/dL Estimated GFR (MDRD) 98 (>89) Glucose 84 (70-100) mg/dL Calcium 9.0 (8.5-10.3) mg/dL Total Bilirubin 0.5 (0.2-1.0) mg/dL AST 18 (10-42) IU/L ALT 18 (10-60) IU/L Alkaline Phosphatase 131 H (42-121) IU/L Total Protein 6.1 L (6.7-8.2) g/dL Albumin 3.0 L (3.2-5.5) g/dL Globulin 3.1 (2.1-4.2) g/dL Albumin/Globulin Ratio 1.0 (1.0-2.2) Blood Type A POSITIVE Antibody Screen NEGATIVE
[2021-12-02] MEDS: SODIUM CHLORIDE FLUSH 0.9% 10 ML SYRINGE IVP SCH ×2 (19:32→19:33)
--- NOTE | 2021-12-02 22:10 | PROVIDER PROGRESS NOTE ---
Subjective - Prog Note Date Prog Note Date: 12/02/21 Prog Note Time: 22:08 - Subjective Subjective: Patient has just had 4th dose of miso since presentation this am. Currently at 50 mcg dosing. Still comfortable. Membranes intact. Contractions have increased in frequency. VS 96 18 127/81 EFM 135 mod sanjeev 15x15 accels no decels TOCO: Q2-3 min Cat I tracing Given frequency of contractions, will likely transition to pitocin at 5 hour spost miso administration Objective - Lab Results Fish Bones: 12/02/21 09:05 12/02/21 09:05 Other Labs: Lab Results x24hrs 12/02/21 12/02/21 12/02/21 Range/Units 09:05 09:05 09:05 WBC 9.8 (4.8-10.8) x10^3/uL RBC 4.17 L (4.20-5.40) 10^6/uL Hgb 13.4 (12.0-16.0) g/dL Hct 40.1 (37.0-47.0) % MCV 96.2 (81.0-99.0) fL MCH 32.1 H (27.0-31.0) pg MCHC 33.4 (32.0-36.0) g/dL RDW 12.7 (12.0-15.0) % Plt Count 181 (130-450) 10^3/uL MPV 10.8 (7.9-10.8) fL Neut # (Auto) 6.9 H (1.5-6.6) 10^3/uL Lymph # (Auto) 1.9 (1.5-3.5) 10^3/uL [place] # (Auto) 0.8 (0.0-1.0) 10^3/uL Eos # (Auto) 0.1 (0.0-0.7) 10^3/uL Baso # (Auto) 0.1 (0.0-0.1) 10^3/uL Absolute Nucleated RBC 0.00 x10^3/uL Nucleated RBC % 0.0 /100WBC Sodium 134 L (135-145) mmol/L Potassium 3.8 (3.5-5.0) mmol/L Chloride 104 (101-111) mmol/L Carbon Dioxide 21 (21-32) mmol/L Anion Gap 9.0 (6-13) BUN 10 (6-20) mg/dL Creatinine 0.7 (0.4-1.0) mg/dL Estimated GFR (MDRD) 98 (>89) Glucose 84 (70-100) mg/dL Calcium 9.0 (8.5-10.3) mg/dL Total Bilirubin 0.5 (0.2-1.0) mg/dL AST 18 (10-42) IU/L ALT 18 (10-60) IU/L Alkaline Phosphatase 131 H (42-121) IU/L Total Protein 6.1 L (6.7-8.2) g/dL Albumin 3.0 L (3.2-5.5) g/dL Globulin 3.1 (2.1-4.2) g/dL Albumin/Globulin Ratio 1.0 (1.0-2.2) Blood Type A POSITIVE Antibody Screen NEGATIVE
[2021-12-03] MEDS: miSOPROStoL 100 MCG TABLET BC SCH ×4 (01:40→16:52)
[2021-12-03] MEDS: SODIUM CHLORIDE FLUSH 0.9% 10 ML SYRINGE IVP SCH ×3 (02:15→16:52)
--- NOTE | 2021-12-03 06:40 | PROVIDER PROGRESS NOTE ---
Subjective - Prog Note Date Prog Note Date: 12/03/21 Prog Note Time: 06:36 - Subjective Subjective: S: Patient becoming more uncomfortable. Has had 4 doses of miso. No LOF or VB O:VS: 86 16 122/82 GEN: NAD SVE FT/70/posterior/med/-2 EFM 130 mod sanjeev 15x15 accels no decels TOCO: Q3 min 31 yo at 41 wga here for post dates IOL s/p miso x2 on 12/01/21 and 3 on 12/02/21 -Will be difficult Guzman balloon placement at present -Will give continued dose of miso at 50 mcg -Cat I tracing Objective - Lab Results Fish Bones: 12/02/21 09:05 12/02/21 09:05 Other Labs: Lab Results x24hrs 12/02/21 12/02/21 12/02/21 Range/Units 09:05 09:05 09:05 WBC 9.8 (4.8-10.8) x10^3/uL RBC 4.17 L (4.20-5.40) 10^6/uL Hgb 13.4 (12.0-16.0) g/dL Hct 40.1 (37.0-47.0) % MCV 96.2 (81.0-99.0) fL MCH 32.1 H (27.0-31.0) pg MCHC 33.4 (32.0-36.0) g/dL RDW 12.7 (12.0-15.0) % Plt Count 181 (130-450) 10^3/uL MPV 10.8 (7.9-10.8) fL Neut # (Auto) 6.9 H (1.5-6.6) 10^3/uL Lymph # (Auto) 1.9 (1.5-3.5) 10^3/uL [place] # (Auto) 0.8 (0.0-1.0) 10^3/uL Eos # (Auto) 0.1 (0.0-0.7) 10^3/uL Baso # (Auto) 0.1 (0.0-0.1) 10^3/uL Absolute Nucleated RBC 0.00 x10^3/uL Nucleated RBC % 0.0 /100WBC Sodium 134 L (135-145) mmol/L Potassium 3.8 (3.5-5.0) mmol/L Chloride 104 (101-111) mmol/L Carbon Dioxide 21 (21-32) mmol/L Anion Gap 9.0 (6-13) BUN 10 (6-20) mg/dL Creatinine 0.7 (0.4-1.0) mg/dL Estimated GFR (MDRD) 98 (>89) Glucose 84 (70-100) mg/dL Calcium 9.0 (8.5-10.3) mg/dL Total Bilirubin 0.5 (0.2-1.0) mg/dL AST 18 (10-42) IU/L ALT 18 (10-60) IU/L Alkaline Phosphatase 131 H (42-121) IU/L Total Protein 6.1 L (6.7-8.2) g/dL Albumin 3.0 L (3.2-5.5) g/dL Globulin 3.1 (2.1-4.2) g/dL Albumin/Globulin Ratio 1.0 (1.0-2.2) Blood Type A POSITIVE Antibody Screen NEGATIVE
--- NOTE | 2021-12-03 06:49 | PROVIDER PROGRESS NOTE ---
Subjective - Prog Note Date Prog Note Date: 12/03/21 Prog Note Time: 06:49 - Subjective Subjective: Patient showed 4 minute decel Turned off pit Started fluids Position change Recovery to cat I tracing Will restart pit at 7 am if continues to show Jeanne I tracing Objective - Lab Results Fish Bones: 12/02/21 09:05 12/02/21 09:05 Other Labs: Lab Results x24hrs 12/02/21 12/02/21 12/02/21 Range/Units 09:05 09:05 09:05 WBC 9.8 (4.8-10.8) x10^3/uL RBC 4.17 L (4.20-5.40) 10^6/uL Hgb 13.4 (12.0-16.0) g/dL Hct 40.1 (37.0-47.0) % MCV 96.2 (81.0-99.0) fL MCH 32.1 H (27.0-31.0) pg MCHC 33.4 (32.0-36.0) g/dL RDW 12.7 (12.0-15.0) % Plt Count 181 (130-450) 10^3/uL MPV 10.8 (7.9-10.8) fL Neut # (Auto) 6.9 H (1.5-6.6) 10^3/uL Lymph # (Auto) 1.9 (1.5-3.5) 10^3/uL [place] # (Auto) 0.8 (0.0-1.0) 10^3/uL Eos # (Auto) 0.1 (0.0-0.7) 10^3/uL Baso # (Auto) 0.1 (0.0-0.1) 10^3/uL Absolute Nucleated RBC 0.00 x10^3/uL Nucleated RBC % 0.0 /100WBC Sodium 134 L (135-145) mmol/L Potassium 3.8 (3.5-5.0) mmol/L Chloride 104 (101-111) mmol/L Carbon Dioxide 21 (21-32) mmol/L Anion Gap 9.0 (6-13) BUN 10 (6-20) mg/dL Creatinine 0.7 (0.4-1.0) mg/dL Estimated GFR (MDRD) 98 (>89) Glucose 84 (70-100) mg/dL Calcium 9.0 (8.5-10.3) mg/dL Total Bilirubin 0.5 (0.2-1.0) mg/dL AST 18 (10-42) IU/L ALT 18 (10-60) IU/L Alkaline Phosphatase 131 H (42-121) IU/L Total Protein 6.1 L (6.7-8.2) g/dL Albumin 3.0 L (3.2-5.5) g/dL Globulin 3.1 (2.1-4.2) g/dL Albumin/Globulin Ratio 1.0 (1.0-2.2) Blood Type A POSITIVE Antibody Screen NEGATIVE
--- NOTE | 2021-12-03 12:35 | PROVIDER PROGRESS NOTE ---
Labor Progress Note - Uterine Monitoring Uterine Monitoring Mode: positive: External toco Contraction Frequency (min/apart): 3-5 Contraction Intensity: positive: Moderate to strong Uterine Resting Tone: positive: Soft - Monitoring Monitor Mode: positive: External ultrasound Heart Rate Baseline: 135 Heart Rate Variability: positive: Moderate (6-25 bmp) Accelerations: positive: Present, 15x15 Decelerations: positive: None Strip Review: positive: Category I - Vaginal Exam Dilation (in cm): 1 Effacement (%): 50 Station: -3 Cervical Position: Posterior - Labor Progress Note Labor Progress Note/Additional Text: Patient has received 6 doses of misoprostol, still fingertip dilated. Discussed risks and benefits of CRB and patient agreed. Patient tolerated procedure, but was very painful for her. 40ml instilled in each balloon.
[2021-12-03] MEDS ORDERED: ONDANSETRON 4 MG/2 ML VIAL IVP PRN (13:21)
[2021-12-03] MEDS: fentaNYL 100 MCG/2 ML VIAL IVP PRN ×2 (14:02→15:28)
[2021-12-03] MEDS: LACTATED RINGERS 1,000 ML IV PRN (18:40)
[2021-12-03] MEDS ORDERED: LIDOCAINE-MPF 1% 30 ML VIAL ID PRN (22:37)
[2021-12-03] MEDS ORDERED: ZOLPIDEM 5 MG TABLET PO PRN (23:29)
--- NOTE | 2021-12-04 00:31 | PROVIDER PROGRESS NOTE ---
Labor Progress Note - Uterine Monitoring Uterine Monitoring Mode: positive: External toco Contraction Frequency (min/apart): 3-5 - Monitoring Monitor Mode: positive: External ultrasound Heart Rate Baseline: 125 Heart Rate Variability: positive: Moderate (6-25 bmp) Accelerations: positive: Present, 15x15 Decelerations: positive: Early (Occasional) Strip Review: positive: Category I - Labor Progress Note Labor Progress Note/Additional Text: CRB removed. Declined cervical exam as these are very uncomfortable Currently on oxytocin with category 1 tracing. Will continue increasing as tolerated.
[2021-12-04] MEDS: fentaNYL 100 MCG/2 ML VIAL IVP PRN ×2 (02:12→06:49)
[2021-12-04] MEDS: LACTATED RINGERS 1,000 ML IV PRN ×3 (02:24→15:36)
[2021-12-04] MEDS ORDERED: ROPIVACAINE 0.2% 200 MG/100 ML BAG EP ONE (07:09)
[2021-12-04] MEDS ORDERED: BUPIVACAINE 0.25% PF 10 ML VIAL ONE ×2 (07:09→16:52)
[2021-12-04] MEDS ORDERED: fentaNYL 100 MCG/2 ML VIAL ONE ×2 (07:09→16:52)
[2021-12-04] MEDS ORDERED: ONDANSETRON 4 MG/2 ML VIAL IVP PRN (07:56)
[2021-12-04] MEDS ORDERED: ePHEDrine 50 MG/ML VIAL IVP PRN (07:56)
[2021-12-04] MEDS ORDERED: diphenhydrAMINE INJ 50 MG/ML VIAL IVP PRN (07:56)
[2021-12-04] MEDS ORDERED: NALBUPHINE 10 MG/ML AMP IVP PRN (07:56)
[2021-12-04] MEDS ORDERED: ROPIVACAINE 0.2% 200 MG/100 ML BAG EP PRN (07:56)
[2021-12-04] MEDS ORDERED: NALOXONE 0.4 MG/ML VIAL IVP PRN (07:56)
[2021-12-04] MEDS ORDERED: METOCLOPRAMIDE 10 MG/2 ML VIAL IVP PRN (07:56)
--- NOTE | 2021-12-04 07:56 | ANESTHESIA ---
Pre-Anesthesia VS, & Labs - Diagnosis active labor - Procedure labor epidural Vital Signs: Temp Pulse Resp BP Pulse Ox 37.1 C 12/02/21 09:00 Height: 5 ft 5.5 in Weight (kg): 72.847 kg Body Mass Index: 26.3 BMI Classification: Overweight - NPO >8 hours - Is Patient ?: Yes - Lab Results Current Lab Results: Laboratory Tests 12/02/21 09:05: Sodium 134 L, Potassium 3.8, Chloride 104, Carbon Dioxide 21, Anion Gap 9.0, BUN 10, Creatinine 0.7, Estimated GFR (MDRD) 98, Glucose 84, Calcium 9.0, Total Bilirubin 0.5, AST 18, ALT 18, Alkaline Phosphatase 131 H, Total Protein 6.1 L, Albumin 3.0 L, Globulin 3.1, Albumin/Globulin Ratio 1.0 12/02/21 09:05: WBC 9.8, RBC 4.17 L, Hgb 13.4, Hct 40.1, MCV 96.2, MCH 32.1 H, MCHC 33.4, RDW 12.7, Plt Count 181, MPV 10.8, Neut # (Auto) 6.9 H, Lymph # (A uto) 1.9, [place] # (Auto) 0.8, Eos # (Auto) 0.1, Baso # (Auto) 0.1, Absolute Nucleated RBC 0.00, Nucleated RBC % 0.0 12/02/21 09:05: Blood Type A POSITIVE, Antibody Screen NEGATIVE Lab results reviewed: Yes Fish Bones: 12/02/21 09:05 12/02/21 09:05 Home Medications and Allergies Active Medications Acetaminophen (Acetaminophen 500 Mg Tablet) 1,000 mg PO Q8H PRN PRN Reason: Pain or Fever > 38C (100.4F) Carboprost Tromethamine (Carboprost Tromethamine 250 Mcg/Ml Amp) 250 mcg IM .ONCE PRN PRN Reason: Hemorrhage Hydralazine HCl (Hydralazine Inj 20 Mg/Ml Vial) 10 mg IVP .ONCE PRN; Protocol PRN Reason: Step 9 of Labetalol protocol Stop: 12/07/21 08:42 Oxytocin/Sodium Chloride (Pitocin/Sodium Chloride) 500 mls @ 999 mls/hr IV PRN PRN; Protocol PRN Reason: POST- HEMORR PREVENTION Tranexamic Acid (Tranexamic 1,000 Mg/100ml-Nacl) 1,000 mg in 100 mls @ 600 mls/hr IV Q30M PRN PRN Reason: EBL >1200mL and within 3hr Lactated Ringer's (Lr) 1,000 mls @ 125 mls/hr IV .Q8H PRN PRN Reason: per physician order Last Admin: 12/04/21 02:24 Dose: 125 mls/hr Lactated Ringer's (Lr) 500 mls @ 999 mls/hr IV ONCE PRN PRN Reason: per physician order Stop: 12/07/21 08:39 Oxytocin/Sodium Chloride (Pitocin/Sodium Chloride) 500 mls @ 1 mls/hr IV TITR PRN; Protocol PRN Reason: per physician order Last Titration: 12/03/21 19:19 Dose: 2 milliunit/min, 2 mls/hr Lactated Ringer's (Lr) 1,000 mls @ 200 mls/hr [id number] .Q5H PRN PRN Reason: per physician order Labetalol HCl (Labetalol 20 Mg/4 Ml Syringe) 20 - 80 mg IVP Q10M PRN; Protocol PRN Reason: SBP> or= 160 OR DBP> or= 110 Labetalol HCl (Labetalol 20 Mg/4 Ml Syringe) 20 mg IVP .ONCE PRN; Protocol PRN Reason: SBP> or= 160 OR DBP> or= 110 Lidocaine HCl (Lidocaine-Mpf 1% 30 Ml Vial) 30 ml ID ONCE PRN PRN Reason: PERINEAL REPAIR Stop: 12/05/21 22:38 Methylergonovine Maleate (Methylergonovine 0.2 Mg/Ml Vial) 0.2 mg IM .ONCE PRN PRN Reason: Hemorrhage Misoprostol (Misoprostol 200 Mcg Tablet) 600 mcg BC .ONCE PRN PRN Reason: Hemorrhage Misoprostol (Misoprostol 200 Mcg Tablet) 800 mcg DC .ONCE PRN PRN Reason: Hemorrhage Misoprostol (Misoprostol 100 Mcg Tablet) 50 mcg BC Q4H JOSE CARLOS Last Admin: 12/03/21 16:52 Dose: Not Given Ondansetron HCl (Ondansetron 4 Mg/2 Ml Vial) 4 mg IVP Q6HR PRN PRN Reason: Nausea / Vomiting Last Admin: 12/04/21 06:03 Dose: 4 mg Oxytocin (Oxytocin 10 Unit/Ml Vial) 10 unit IM .ONCE PRN PRN Reason: Step One if no IV access. Sodium Chloride (Sodium Chloride Flush 0.9% 10 Ml Syringe) 10 ml IVP PRN PRN PRN Reason: NEEDED PER PROVIDER ORDERS Sodium Chloride (Sodium Chloride Flush 0.9% 10 Ml Syringe) 10 ml IVP Q8H JOSE CARLOS Last Admin: 12/03/21 16:52 Dose: Not Given Terbutaline Sulfate (Terbutaline 1 Mg/Ml Vial) 0.25 mg SUBQ ONCE PRN PRN Reason: Tachystole Stop: 12/07/21 08:39 Zolpidem Tartrate (Zolpidem 5 Mg Tablet) 5 mg PO QPM PRN PRN Reason: Insomnia Last Admin: 12/04/21 00:14 Dose: 5 mg Allergies/Adverse Reactions: Allergies Allergy/AdvReac Type Severity Reaction Status Date / Time No Known Drug Allergies Allergy Verified 12/04/21 01:17 Anes History & Medical History - Anesthetic History Anesthesia Complications: reports: No previous complications Family history of Anesthesia Complications: Denies Family history of Malignant Hyperthermia: Denies - Medical History Smoking Status: Never smoker Other Past Medical History: antiphospholipid disorder on lovenox Exam General: Alert, Oriented x3, Cooperative, No acute distress Dental: WNL Plan Anesthesia Type: Epidural Consent for Procedure(s) Verified and Reviewed: Yes Code Status: Attempt Resuscitation ASA classification: 2-Mild systemic disease Is this case an emergency?: No
--- NOTE | 2021-12-04 10:45 | PROVIDER PROGRESS NOTE ---
Labor Progress Note - Uterine Monitoring Uterine Monitoring Mode: positive: External toco Contraction Frequency (min/apart): 3 Contraction Intensity: positive: Moderate to strong - Monitoring Monitor Mode: positive: External ultrasound Heart Rate Variability: positive: Moderate (6-25 bmp) Accelerations: positive: Present, 15x15 Decelerations: positive: None - Vaginal Exam Dilation (in cm): 10 Effacement (%): 100 Station: 0 (Patient desires to labor down with positional changes. Epidural providing good pain relief. Will recheck in 2 hours.)
[2021-12-04] MEDS ORDERED: CALCIUM CARBONATE CHEW 500 MG TABLET PO PRN (16:02)
--- NOTE | 2021-12-04 16:27 | PROVIDER PROGRESS NOTE ---
Labor Progress Note - Uterine Monitoring Uterine Monitoring Mode: positive: External toco Contraction Frequency (min/apart): 3-4 Contraction Intensity: positive: Moderate to strong Uterine Resting Tone: positive: Soft - Monitoring Monitor Mode: positive: External ultrasound Heart Rate Baseline: 120 Heart Rate Variability: positive: Moderate (6-25 bmp) Accelerations: positive: Present, 15x15 Decelerations: positive: None - Vaginal Exam Dilation (in cm): 10 Effacement (%): 100 Station: 2 - Labor Progress Note Labor Progress Note/Additional Text: Patient continues to push. Although her descent has stalled at +2 station. Previously counseled on vacuum-assisted vaginal delivery, but patient again declines at this time. Discussed the importance of not getting to a point where she has no energy to assist with the vacuum should she decide to accept it. If she gets too tired to push, her only option will be delivery. Patient to take a short break and continue to push afterwards. Remains afebrile.
--- NOTE | 2021-12-04 17:26 | CONSULTATION NOTE ---
Consultation Report: patient having increased pain on left side. Bupivacaine 0.25% 4 mL and Fentanyl 100 mcg given epidural. With good relief.
--- NOTE | 2021-12-04 19:10 | PROVIDER PROGRESS NOTE ---
Labor Progress Note - Uterine Monitoring Uterine Monitoring Mode: positive: External toco Contraction Frequency (min/apart): 3-4 Contraction Intensity: positive: Moderate to strong Uterine Resting Tone: positive: Soft - Monitoring Monitor Mode: positive: External ultrasound Heart Rate Baseline: 130 Heart Rate Variability: positive: Moderate (6-25 bmp) Accelerations: positive: Present, 15x15 Decelerations: positive: Early Strip Review: positive: Category I - Labor Progress Note Labor Progress Note/Additional Text: Patient still making minimal descent with pushing. I have been in the room for most of the last 3 hours. Encouraged for third time to consider vacuum-assisted vaginal delivery as this is much longer than usual. Discussed that while wellbeing does not appear compromised, prolonged second stages are associated with increased hemorrhage, infection, and worse outcomes. Patient and her partner hesitant to do this, but are considering their options at this time.
[2021-12-04] MEDS: OXYTOCIN/SODIUM CHLORIDE 500 ML IV PRN ×2 (20:52→21:23)
[2021-12-04] MEDS ORDERED: SIMETHICONE CHEW 80 MG TABLET PO PRN (22:04)
--- NOTE | 2021-12-04 22:04 | DELIVERY NOTE ---
Delivery Note - Labor Labor: positive: Augmented by oxytocin - Delivery Method Delivery Method: positive: Vacuum assist - Cervical Ripening Method Cervical Ripening Method: positive: Balloon device, Misoprostil - Presentation Presentation: positive: ISSA - right occiput anterior - Nuchal Cord Nuchal Cord: positive: Present, Reduced - Anesthetic Anesthetic Type: - Vacuum Use Indication for Vacuum Use: positive: Prolonged 2nd stage Type of Vacuum Cup: positive: Cup: Mushroom Type Vacuum Extraction: positive: Successful Number of pop-offs: 0 - Laceration Laceration: positive: Labial (Bilateral) - Suture Suture Type: positive: Vicryl Suture Size: positive: 3-0 - Delivery Outcome Delivery Outcome: positive: Livebirth - : positive: Placed in direct skin contact with mother, Stimulated, [place] used Acra sex: positive: Male - Cord Cord: positive: 3 vessels - Placenta Placenta: positive: Intact, Spontaneous - Estimated Blood Loss Estimated Blood Loss (in cc): 800 - Post Delivery Events Post Delivery Events: positive: No post delivery events - Delivery Comments (Free Text/Narrative) Delivery Comments (Free Text/Narrative): Preoperative Diagnoses 41 weeks gestation Anticoagulation therapy Induction of labor Prolonged second stage Postoperative Diagnoses Same Status post vacuum-assisted vaginal delivery Patient had induction of labor at 41 weeks. She received 6 doses of misoprostol. She then had a cervical ripening balloon that remained in place for 12 hours in addition to oxytocin. After its removal, she was continued on oxytocin. She received an epidural for pain control. Rupture of membranes was spontaneous. She became complete around 0945 this morning. She it was allowed to labor down for approximately 2 hours. She then began pushing. Initially she had several late decelerations however these subsided. After the short period, she was category 1 for essentially the rest of her labor. Patient was counseled several times through the course of her pushing after she having a prolonged second stage. She continued to decline vacuum assistance or section. Again we pushed for an additional 3 hours at which point she was counseled and again declined. Finally after 2 more hours she agreed to vacuum delivery. She pushed in total for approximately 8 hours. Delivery Summary: She patient was counseled on the risk of vacuum delivery. We discussed a trial of vacuum delivery with no significant descent we would proceed with section. We discussed that we would give up if no descent occurred after 2 tractions, if delivery did not occur after 4 tractions or if the vacuum detached more than twice. We discussed the risk of cephalhematoma, hemorrhage, nerve injuries, bruises, elevated bilirubin, as well as maternal issues of soft tissue injuries. We discussed that traction alone cannot deliver the baby, we can only assist maternal pushing efforts. Patient was placed in the dorsal lithotomy position. Patient was confirmed to be +2 station, and the flexion point was identified 3 cm anterior of the posterior fontanelle. At the beginning of retraction, the pump was inflated to the green zone on the Kiwi suction device and traction was applied in the direction of the movement of the head. Patient made good progress with her first contraction, and the suction was decreased between contractions. Upon the second contraction, patient continued to have good descent and after the first push, the vacuum device was removed and patient continued to push spontaneously. Upon maternal pushing the head was delivered atraumatically, but the shoulders were noted to be transverse and the patient was put in Buster position and the shoulders were turned in anterior posterior direction, and the anterior shoulder was easily delivered followed by the posterior shoulder, then the remainder of the infant's body. A male was delivered with APGARS of 5 at 1 minute and 9 at 5 minutes. The was placed on its mother's chest . After the cord finished pulsating, the umbilical cord was clamped times two and cut. The placenta delivered intact with three vessel cord. Placenta was not sent to pathology. Thirty units of Pitocin were added to the IV fluid and allowed to run freely. Uterine massage was performed until uterus was deemed firm. Upon inspection of the perineum, bilateral labial lacerations were noted. These were repaired with running sutures of 3-0 Vicryl. Due to the significant edema, the tissue was very friable and would often pull through. The major areas of bleeding were stopped and were hemostatic upon review. No significant bleeding was noted although the tissue remains very edematous. Upon re-inspection the patient was hemostatic. Uterus again massaged and found to be firm. Needle and sponge counts were correct. Patient was stable and allowed to recover in L&D room. Infant was stable and remained in room with mother. weight is pending at this time.
[2021-12-04] MEDS ORDERED: LACTATED RINGERS 1,000 ML IV SCH (23:00)
[2021-12-05] MEDS: IBUPROFEN 600 MG TABLET PO SCH ×4 (00:03→20:26)
[2021-12-05] MEDS: ACETAMINOPHEN 500 MG TABLET PO SCH ×3 (06:09→22:42)
[2021-12-05] MEDS: DOCUSATE SODIUM 100 MG CAPSULE PO PRN ×2 (07:51→20:26)
--- NOTE | 2021-12-05 09:47 | PROVIDER PROGRESS NOTE ---
Subjective - Prog Note Date Prog Note Date: 12/05/21 - Subjective Subjective: Subjective Patient reports she is doing well. Lochia appropriate. Denies heavy bleeding. Ambulating. Pelvic and abdominal pain well-controlled. Tolerating oral intake. Diet: Regular. Voiding without difficulty. Passing flatus. Denies BM. Patient is bonding with baby in room Breast feeding going well. Denies feeling lightheaded, dizzy or excessively fatigued. Objective General: Alert, oriented, no apparent distress. Cardiovascular: Regular rate. Regular rhythm. Lungs: No increased work of breathing. Abdomen: Uterus firm. Below umbilicus. No guarding or rebound. Assessment and Plan day 1. -Routine care -Anticipate discharge tomorrow hemorrhage Objective - Vital Signs/Intake & Output Vital Signs: Vital Signs x48h Temp Pulse Resp BP Pulse Ox 12/05/21 07:46 97.7 F 87 18 110/71 98 12/05/21 04:45 98.2 F 92 16 129/78 99 Intake & Output: Intake & Output 12/02/21 12/03/21 12/04/21 12/05/21 23:59 23:59 23:59 23:59 Intake Total 0.667 5169.000 340 Output Total 600 475 Balance 0.667 4569.000 -135 - Lab Results Fish Bones: 12/02/21 09:05 12/02/21 09:05
[2021-12-05 16:51] LABS: BASOPHILS # (AUTO) 0.1 10^3/uL (0.0-0.1); BASOPHILS % (AUTO) 0.4 %; EOSINOPHILS # (AUTO) 0.1 10^3/uL (0.0-0.7); EOSINOPHILS % (AUTO) 0.8 %; HCT - HEMATOCRIT 28.3 % (37.0-47.0); HGB - HEMOGLOBIN 9.6 g/dL (12.0-16.0); LYMPHOCYTES # (AUTO) 2.1 10^3/uL (1.5-3.5); LYMPHOCYTES % (AUTO) 13.1 %; MEAN CORPUSCULAR HEMOGLOBIN 32.8 pg (27.0-31.0); MEAN CORPUSCULAR HGB CONC 33.9 g/dL (32.0-36.0); MEAN CORPUSCULAR VOLUME 96.6 fL (81.0-99.0); MEAN PLATELET VOLUME 10.7 fL (7.9-10.8); MONOCYTES # (AUTO) 1.4 10^3/uL (0.0-1.0); MONOCYTES % (AUTO) 8.6 %; NEUTROPHILS # (AUTO) 12.4 10^3/uL (1.5-6.6); NEUTROPHILS % (AUTO) 76.4 %; PLT - PLATELET COUNT 161 10^3/uL (130-450); RED BLOOD COUNT 2.93 10^6/uL (4.20-5.40); RED CELL DISTRIBUTION WIDTH 13.1 % (12.0-15.0); WHITE BLOOD COUNT 16.3 x10^3/uL (4.8-10.8)
[2021-12-06] MEDS: IBUPROFEN 600 MG TABLET PO SCH ×4 (03:50→18:01)
[2021-12-06] MEDS: DOCUSATE SODIUM 100 MG CAPSULE PO PRN ×2 (10:29→20:37)
[2021-12-06] MEDS: ACETAMINOPHEN 500 MG TABLET PO SCH ×2 (10:30→17:59)
--- NOTE | 2021-12-06 13:14 | Discharge Plan ---
Discharge Plan Problem Reviewed?: Yes Disposition: Home, Self Care Condition: Good Prescriptions: Acetaminophen [Acetaminophen Extra Strength] 1,000 mg PO Q8H PRN #60 tablet PRN Reason: Pain Docusate Sodium 100Mg Capsule [Colace 100Mg Capsule] 100 - 200 mg PO BID PRN #60 cap PRN Reason: Constipation Ibuprofen [Motrin] 600 mg PO Q6H PRN #60 tab PRN Reason: Pain Diet: Regular Activity Restrictions: Additional Comments (see below) Shower Restrictions: Yes (no tub baths or hot tubs for 4 weeks) Additional Instructions or Follow Up instructions: Nothing in the vagina for 6 weeks: No intercourse, tampons, douching Call for: -Fever greater than 100.5 -Pain that does not improve with pain medication -Heavy bleeding in which you are soaking a pad an hour for 2 hours in a row -Pain in the legs (especially one sided), swelling in one leg and not the other, or difficulty/pain with breathing. No tub baths or hot tubs for 4 weeks Ibuprofen 600 mg by mouth every 6 hours as needed for pain Acetaminophen 500-1000 mg by mouth every 8 hours as needed for pain Docusate 100-200 mg by mouth twice a day as needed for constipation Con Lovenox 40 mg subQ daily for 6 weeks No Smoking: If you smoke, Please STOP! Call for help. Follow-up with: AMBER MOHR ARNP [Primary Care Provider] -
--- NOTE | 2021-12-06 14:14 | PROVIDER PROGRESS NOTE ---
Subjective - Prog Note Date Prog Note Date: 12/06/21 Prog Note Time: 14:11 - Subjective Subjective: Patient is up and ambulating, tolerating po, and voiding. Pain is well managed with pain medications. Struggling a bit with . Baby will remain in- patient for feeding support. Re-starting lovenox. Objective - Vital Signs/Intake & Output Reviewed Vital Signs: Yes Vital Signs: Vital Signs x48h Temp Pulse Resp BP Pulse Ox 12/06/21 07:49 97.9 F 92 19 124/80 100 Intake & Output: Intake & Output 12/03/21 12/04/21 12/05/21 12/06/21 23:59 23:59 23:59 23:59 Intake Total 0.667 5169.000 540 760 Output Total 600 475 Balance 0.667 4569.000 65 760 - Objective General Appearance: positive: No acute distress Respiratory: positive: No respiratory distress Cardiovascular: positive: Other (RR) Peripheral Pulses: 2+ Dorsalis pedis (R), 2+ Dorsalis pedis (L) Abdomen: positive: Non-tender, Other (S&NT/ND. FF below umbi) Skin: positive: Color nml Extremities: positive: Non-tender, Pedal edema (mild) Neurologic/Psychiatric: positive: Oriented x3 - Lab Results Fish Bones: 12/05/21 16:41 12/02/21 09:05 Other Labs: Lab Results x24hrs 12/05/21 Range/Units 16:41 WBC 16.3 H (4.8-10.8) x10^3/uL RBC 2.93 L (4.20-5.40) 10^6/uL Hgb 9.6 L (12.0-16.0) g/dL Hct 28.3 L (37.0-47.0) % MCV 96.6 (81.0-99.0) fL MCH 32.8 H (27.0-31.0) pg MCHC 33.9 (32.0-36.0) g/dL RDW 13.1 (12.0-15.0) % Plt Count 161 (130-450) 10^3/uL MPV 10.7 (7.9-10.8) fL Neut # (Auto) 12.4 H (1.5-6.6) 10^3/uL Lymph # (Auto) 2.1 (1.5-3.5) 10^3/uL [place] # (Auto) 1.4 H (0.0-1.0) 10^3/uL Eos # (Auto) 0.1 (0.0-0.7) 10^3/uL Baso # (Auto) 0.1 (0.0-0.1) 10^3/uL Absolute Nucleated RBC 0.00 x10^3/uL Nucleated RBC % 0.0 /100WBC Assessment/Plan - Problem List (1) Vaginal delivery Impression: PPD#2 s/p VAVD with prolonged second stage and PH of 800 mg -Baby struggling with feeding. Pes to keep baby for additional night. Recommend utlizing support -Re-start lovenox. had been managed by Hematology -Anticipate DC home in am
[2021-12-06] MEDS: ENOXAPARIN 40 MG/0.4 ML SYRINGE SUBQ SCH (20:37)
[2021-12-06] MEDS: FERROUS GLUCONATE 324 MG TABLET PO SCH (20:37)
[2021-12-07] MEDS: IBUPROFEN 600 MG TABLET PO SCH ×4 (00:40→18:24)
[2021-12-07] MEDS: ACETAMINOPHEN 500 MG TABLET PO SCH ×3 (04:25→18:24)
[2021-12-07 08:29] VITALS: BP 126/80
[2021-12-07] MEDS: DOCUSATE SODIUM 100 MG CAPSULE PO PRN (09:26)
[2021-12-07] MEDS: FERROUS GLUCONATE 324 MG TABLET PO SCH (09:26)
--- NOTE | 2021-12-07 13:06 | DISCHARGE SUMMARY ---
Discharge Summary Admit Date: 12/02/21 Discharge Date: 12/07/21 Discharging Provider: Candy Condition at Discharge: Good Discharge Disposition: 01 Home, Self Care - DIAGNOSES Admission Diagnoses: IUP at 40+6 Anticoagulation therapy Induction of labor Prolonged second stage Discharge Diagnoses with Status of Each Condition: Same and delivery of term gestation via VAVD Prolonged second stage - HPI History of Present Illness: Patient is a 31 yo admitted at 40+6 wga for outpatient cervical ripening. HPI: Patient presented for induction of labor with cervical ripening. Had one dose of miso as an outpatient on 12/01/21. 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 Last dose of lovenox was 11/30/21 at 21:00. Pending post-dates. GBS negative. No concerns. No LOF/VB. Having contractions but not uncomfortable. Endorsed FM. PNC: LMP: IVF JELLY by LMP: n/a Initial U/S: at 7.0wks for JELLY 11/26/2021 FINAL JELLY: 11/26/2021 Dating: Dating by IVF. Initial ultrasound at 7 weeks gives JELLY of 11/26/2021. A pos/Rub imm Genetic testing: [place] cell-free DNA denied by x2 -cfDNA conducted through [facility] wnl -The patient declined carrier screening. FAS at 20 weeks. 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 Breast pump Rx- 08/13/21 MOD: Anticipate . Wants to avoid IOL. On Lovenox but MFM ok with discontinuing. Prescribed by Hematology. -Patient prefers to stay on lovenox and declines heparin. Reviewed risk of loven ox at time of labor. Confirmed plan with Anesthesia FOB/ Jameel. contraception: TBD. Pap: 12/15/2018 within normal limits. - HOSPITAL COURSE Hospital Course: Patient had been admitted for induction of labor at 41 weeks. She received 6 doses of misoprostol. She then had a cervical ripening balloon that remained in place for 12 hours in addition to oxytocin. After its removal, she was continued on oxytocin. She received an epidural for pain control. Rupture of membranes was spontaneous. She became complete around 0945 this morning. She it was allowed to labor down for approximately 2 hours. She then began pushing. Initially she had several late decelerations however these subsided. After the short period, she was category 1 for essentially the rest of her labor. Patient was counseled several times through the course of her pushing after she having a prolonged second stage. She continued to decline vacuum assistance or section. Again we pushed for an additional 3 hours at which point she was counseled and again declined. Finally after 2 more hours she agreed to vacuum delivery. She pushed in total for approximately 8 hours. Delivery Summary: She patient was counseled on the risk of vacuum delivery. We discussed a trial of vacuum delivery with no significant descent we would proceed with section. We discussed that we would give up if no descent occurred after 2 tractions, if delivery did not occur after 4 tractions or if the vacuum detached more than twice. We discussed the risk of cephalohematoma, hemorrhage, nerve injuries, bruises, elevated bilirubin, as well as maternal issues of soft tissue injuries. We discussed that traction alone cannot deliver the baby, we can only assist maternal pushing efforts. Patient was placed in the dorsal lithotomy position. Patient was confirmed to be +2 station, and the flexion point was identified 3 cm anterior of the posterior fontanelle. At the beginning of retraction, the pump was inflated to the green zone on the Kiwi suction device and traction was applied in the direction of the movement of the head. Patient made good progress with her first contraction, and the suction was decreased between contractions. Upon the second contraction, patient continued to have good descent and after the first push, the vacuum device was removed and patient continued to push spontaneously. Upon maternal pushing the head was delivered atraumatically, but the shoulders were noted to be transverse and the patient was put in Buster position and the shoulders were turned in anterior posterior direction, and the anterior shoulder was easily delivered followed by the posterior shoulder, then the remainder of the 's body. A male was delivered with APGARS of 5 at 1 minute and 9 at 5 minutes. The was placed on its mother's chest . After the cord finished pulsating, the umbilical cord was clamped times two and cut. The placenta delivered intact with three vessel cord. Placenta was not sent to pathology. Thirty units of Pitocin were added to the IV fluid and allowed to run freely. Uterine massage was performed until uterus was deemed firm. Upon inspection of the perineum, bilateral labial lacerations were noted. These were repaired with running sutures of 3-0 Vicryl. Due to the significant edema, the tissue was very friable and would often pull through. The major areas of bleeding were stopped and were hemostatic upon review. No significant bleeding was noted although the tissue remains very edematous. Upon re-inspection the patient was hemostatic. Uterus again massaged and found to be firm. Needle and sponge counts were correct. On PPD#1 and PPD#2, patient needed support with . Infant was observed for borderline bilirubin levels. - ALLERGIES Allergies/Adverse Reactions: Allergies Allergy/AdvReac Type Severity Reaction Status Date / Time No Known Drug Allergies Allergy Verified 12/04/21 01:17 - MEDICATIONS Home Medications: Ambulatory Orders Medication Instructions Recorded Confirmed cephALEXin [Keflex] 500 mg PO Q6H #28 cap 03/02/21 Acetaminophen [Acetaminophen Extra 1,000 mg PO Q8H PRN #60 tablet 12/06/21 Strength] Docusate Sodium 100Mg Capsule 100 - 200 mg PO BID PRN #60 cap 12/06/21 [Colace 100Mg Capsule] Ibuprofen [Motrin] 600 mg PO Q6H PRN #60 tab 12/06/21 Ascorbic Acid [Vitamin C] 250 mg PO BID 2 Days #60 tablet 12/07/21 Ferrous Gluconate 324 mg PO BID #60 tablet 12/07/21 - PHYSICAL EXAM AT DISCHARGE General Appearance: positive: No acute distress Neck: positive: Nml inspection Respiratory: positive: No respiratory distress Cardiovascular: positive: Other (RR) Peripheral Pulses: positive: 2+ Abdomen: positive: Non-tender, Other (S&NT/ND. FF below umbi) Extremities: positive: Non-tender Neurologic/Psychiatric: positive: Oriented x3 - LABS Result Diagrams: 12/05/21 16:41 12/02/21 09:05 - FOLLOW UP Follow Up: 1 week - TIME SPENT Time Spent in Discharge (Minutes): 30
[2021-12-07] MEDS: ENOXAPARIN 40 MG/0.4 ML SYRINGE SUBQ SCH (18:26)
--- NOTE | 2021-12-07 18:28 | Labor Flowsheet ---
Labor Flowsheet Datetime Report Generated by CPN: 12/07/2021 18:28 Datetime: 12/07/2021 08:02 VITAL SIGNS NBP Sys/Britni/Mean (mmHg): 126 : 80 : 91 Pulse: 78 Datetime: 12/06/2021 16:10 SpO2 (%): 100 Datetime: 12/04/2021 21:51 Respirations: 19 Temperature (C): 38.4 Datetime: 12/04/2021 21:00 Stage of : Recovery Datetime: 12/04/2021 20:52 Medication Comments: pitocin bolus started Datetime: 12/04/2021 20:49 LaborFlag: Labor Datetime: 12/04/2021 20:46 UTERINE ACTIVITY Monitor Mode: External Frequency (min): 2-3.5 Quality: Strong Duration (sec): 50-80 Pattern: Normal: <= 5 Contractions in 10 Minutes Resting Tone (Palpate): Relaxed ASSESSMENT A Monitor Mode: External US FHR Baseline Rate : 145 Variability: Moderate 6-25 bpm Accelerations: 15X15 Decelerations: Early; Late; Variable Category: Category II Datetime: 12/04/2021 20:45 Vacuum: Off Stage 2 Comments: NCx1 reduced, Buster performed per verbal order Datetime: 12/04/2021 20:36 Pushing Position: Pushing Lithotomy Datetime: 12/04/2021 20:34 Communication Comments: MD and ped at bs Datetime: 12/04/2021 20:29 COMMUNICATION Communication: Provider at Bedside Datetime: 12/04/2021 20:15 Comments: minimal to moderate Datetime: 12/04/2021 20:14 VAGINAL EXAM Dilatation (cm): 10.0 Effacement (%): 100 Station: 2 Exam by: M Jose RN Vaginal Bleeding: Normal Show Vaginal Exam Comments: mild caput Datetime: 12/04/2021 20:13 I/O Interventions: Straight Cath (ml) @ 100 Datetime: 12/04/2021 20:00 MATERNAL ASSESSMENT Level of Consciousness: Alert Headache: Denies Breath Sounds, Left: Clear and Equal Breath Sounds, Right: Clear and Equal Nausea/Vomiting: Denies RUQ Epigastric Pain: Denies Maternal Comments: mild pitting edema BLE Datetime: 12/04/2021 19:58 Patient Position/Activity: Right Lateral Datetime: 12/04/2021 19:38 Contraction Comments: abdomen soft, toco referenced Datetime: 12/04/2021 19:31 Patient Care Comments: with pillows and support person x2 Datetime: 12/04/2021 19:19 STAGE 2 Pushing: Coached on Pushing Pushing Progress: Perineal Bulging Datetime: 12/04/2021 19:00 Oxygen Method: Room Air Datetime: 12/04/2021 18:15 MEDICATIONS Pitocin (milliunits): Increased to @ 11 Datetime: 12/04/2021 17:59 FHR Baseline Changes: No Baseline Change Datetime: 12/04/2021 17:00 Pain Coping: Talking Through Contractions Pain Assessment Comments: pain improving after epidural bolus Datetime: 12/04/2021 16:47 Epidural Procedure Other: Single Dose Datetime: 12/04/2021 13:53 Monitor Interventions for FHR: Ultrasound Adjusted Datetime: 12/04/2021 11:31 Provider Notified (Name): William Datetime: 12/04/2021 07:42 PATIENT CARE IV/Blood Work: New IV Bag Hung Datetime: 12/04/2021 07:20 Epidural Procedure: Test Dose Datetime: 12/04/2021 07:18 PROCEDURE TIME OUT Procedure Verify: Correct Patient Identity; Accurate Procedure Consent Form; Agreement on Procedure to be Done; Correct Patient Position; Addressed Need to Administer Antibiotics or Fluids for Irrigat ion; Safety Precautions Based on Patient History or Medication Use ANESTHESIA Anesthesia Plans: Epidural Epidural Positioning: Sitting Datetime: 12/04/2021 07:00 Anesthesia Comments: PRODUCTION FINISHER on unit, report given Datetime: 12/04/2021 06:53 Hygiene: Shaina Care; Peripad Changed Datetime: 12/04/2021 06:51 Pain Relief Measures: Pain Medication Given Datetime: 12/04/2021 06:49 Analgesics/Sedatives: Fentanyl (mcg) @ 50 Datetime: 12/04/2021 06:23 PAIN Pain Scale: 7 Pain Presence: Intermittent Pain Type: Sharp; Contraction Pain Location: Abdomen Comfort Measures: Breathing/Relaxation; Back Rub Given; Hot/Cold Pack; Family Support; Training Analyst Suppor t Datetime: 12/04/2021 06:03 Antiemetics/Antacids: Zofran (mg) @ 4 Datetime: 12/04/2021 05:56 Membrane Status: Bulging Cervix, Position: Midposition Datetime: 12/04/2021 04:05 Temperature Route: Oral Datetime: 12/04/2021 02:09 Monitor Interventions for UA: [place] Adjusted Datetime: 12/04/2021 02:02 TEACHING Instructional Method: Verbal; Patient Instructed; Verbalized Understanding Unit Routine: Safety/Fall Risk Prevention Labor/Induction: Interventions Pain Management: PRN Medications Medications: IV Narcotics Teaching Comments: educated on risks of oversedation Datetime: 12/04/2021 00:13 Notification Reason: Status Update; Patient Request Datetime: 12/04/2021 00:09 DTR's/Clonus: DTRs 2+; No Clonus Datetime: 12/03/2021 23:56 Cervical Ripening Agents: Guzman Balloon Datetime: 12/03/2021 23:23 Plan of Care: Plan of Care Discussed; Vaginal Delivery Datetime: 12/03/2021 23:00 Pitocin Checklist: At Least 1 Acceleration of 15 bpm x 15 Seconds in 30 Minutes or Adequate Variabi lity; No More than 1 Late Deceleration Occurred in Past 30 Minutes; No More than 2 Variable Decelerat ions > 60 Seconds in Duration and decreasing >60 bpm in 30 minutes; No More than 5 Uterine Contractio ns in 10 Minutes for any 20 Minute Interval; Uterus Palpates Soft between Contractions Datetime: 12/03/2021 19:15 Related: Common Discomforts of ; Nutrition; Hydration; Activity and Rest Datetime: 12/03/2021 15:17 Vital Sign Comments: Sitting Datetime: 12/03/2021 11:53 Membrane Comments: Nitrazine inconclusive, provider aware Datetime: 12/03/2021 05:00 ASSESSMENT B Monitor Mode: External US FHR Baseline Rate : 135 Variability: Moderate 6-25 bpm Accelerations: 15X15 Decelerations: None Category: Category I
== END 2021-12-07 18:27 | disposition home or self-care (01) | DRG 807 ==
LOC: WFO 07:35 → FBP 07:40 → WFO 08:39 → FBP 08:40 → OBSVTOIN 12-03 18:54
PROVIDERS: ADMIT Obstetrics & Gynecology; ATTEND Obstetrics & Gynecology
PROC: 3E0P7VZ Introduction of Hormone into Female Reproductive, Via Natural or Artificial Opening (ICD-10-PCS; 2021-12-03)
PROC: 3E0DXGC Introduction of Other Therapeutic Substance into Mouth and Pharynx, External Approach (ICD-10-PCS; 2021-12-03)
PROC: 10D07Z6 Extraction of Products of Conception, Vacuum, Via Natural or Artificial Opening (ICD-10-PCS; principal; 2021-12-04)
PROC: 0UQMXZZ Repair Vulva, External Approach (ICD-10-PCS; 2021-12-04)
DX: O48.0 Post-term pregnancy (principal); Z37.0 Single live birth; O76 Abnormality in fetal heart rate and rhythm complicating labor and delivery; O63.1 Prolonged second stage (of labor); O32.2XX0 Maternal care for transverse and oblique lie, not applicable or unspecified; O70.0 First degree perineal laceration during delivery; Z3A.41 41 weeks gestation of pregnancy; Z79.01 Long term (current) use of anticoagulants
CPT/HCPCS: 36415; 80053; 85025; 86850; 86900; 86901; A9270; J1650; J7120

== ENCOUNTER 2022-10-28 08:00 | Outpatient (CLI) | payer OTHER ==
[2022-10-28 13:51] LABS: BILIRUBIN,URINE NEGATIVE (NEGATIVE); GLUCOSE, URINE (UA) NEGATIVE (NEGATIVE); KETONES,URINE (UA) NEGATIVE (NEGATIVE); LEUKOCYTE ESTERASE, URINE NEGATIVE (NEGATIVE); NITRITE,URINE NEGATIVE (NEGATIVE); OCCULT BLOOD,URINE NEGATIVE (NEGATIVE); PROTEIN,URINE NEGATIVE (NEGATIVE); UROBILINOGEN,URINE 0.2 (NORMAL) E.U./dL (NORMAL)
[2022-10-28 13:57] LABS: CLARITY,URINE CLEAR (CLEAR)
[2022-10-28 13:59] LABS: BACTERIA,URINE Few /HPF (None Seen); RBC,URINE 0-5 /HPF (0-5); SQUAMOUS EPITHELIAL CELL,UR FEW Squamous (<= Few); WBC,URINE 0-3 /HPF (0-5)
== END 2022-10-28 23:59 | disposition home or self-care (01) ==
LOC: LAB.N 08:00
PROVIDERS: ATTEND Obstetrics & Gynecology
DX: Z34.90 Encounter for supervision of normal pregnancy, unspecified, unspecified trimester (principal)
CPT/HCPCS: 81001; 87086

== ENCOUNTER 2022-11-16 07:02 | Outpatient (CLI) | payer OTHER ==
[2022-11-16 07:42] LABS: BASOPHILS % (AUTO) 0.5 %; EOSINOPHILS # (AUTO) 0.1 10^3/uL (0.0-0.7); EOSINOPHILS % (AUTO) 1.5 %; HCT - HEMATOCRIT 38.3 % (37.0-47.0); HGB - HEMOGLOBIN 12.4 g/dL (12.0-16.0); LYMPHOCYTES # (AUTO) 2.5 10^3/uL (1.5-3.5); LYMPHOCYTES % (AUTO) 38.2 %; MEAN CORPUSCULAR HEMOGLOBIN 30.2 pg (27.0-31.0); MEAN CORPUSCULAR HGB CONC 32.4 g/dL (32.0-36.0); MEAN CORPUSCULAR VOLUME 93.2 fL (81.0-99.0); MEAN PLATELET VOLUME 9.1 fL (7.9-10.8); MONOCYTES # (AUTO) 0.4 10^3/uL (0.0-1.0); MONOCYTES % (AUTO) 6.7 %; NEUTROPHILS # (AUTO) 3.5 10^3/uL (1.5-6.6); NEUTROPHILS % (AUTO) 52.9 %; PLT - PLATELET COUNT 257 10^3/uL (130-450); RED BLOOD COUNT 4.11 10^6/uL (4.20-5.40); RED CELL DISTRIBUTION WIDTH 13.2 % (12.0-15.0); WHITE BLOOD COUNT 6.5 x10^3/uL (4.8-10.8)
--- NOTE | 2022-11-16 10:38 | Ultrasound Report ---
PROCEDURE: OB First Trimester w/TV INDICATIONS: POSITIVE TEST OUTSIDE/PRIOR DATING DATA: Last menstrual period (LMP): Unknown. LMP-based estimated date of delivery (JELLY): Not applicable. First dating scan (date and location): Current study, 11/16/2022. Estimated date of delivery (JELLY) from first dating scan: 06/18/2023. TECHNIQUE: Real-time scanning was performed of the fetus and maternal pelvic organs, with image documentation. Endovaginal scanning was also performed to better visualize the fetus and maternal ovaries. COMPARISON: None FINDINGS: Embryo: A single intrauterine fetus with an average crown-rump length of 2.60 cm corresponding to a 9 week 3 day +/- 6 day gestation. There is detectable cardiac activity at a rate of 171 beats p er minutes. A normal yolk sac and partially fused amnion are seen. Measurement variability in dating: +/- 4 weeks by LMP, +/- 7 days by mean sac diameter (use before 6 weeks gestation if crown-rump length not able to be measured), +/- 5 days by crown-rump length (6-12 weeks gestation). Maternal organs: The uterus is anteverted. The cervix is closed. There is a fundal gestational sac. Very small. Gestational hemorrhage along the bilateral fundal aspects of the gestational sac, both in active. Ovaries are within normal limits. IMPRESSION: 1. Single live intrauterine with a gestational age by first trimester ultrasound of 9 weeks 3 days and estimated due date of 06/18/2023. Reviewed by: Rosanna Schwarz MD on 11/16/2022 10:37 AM PST Approved by: Rosanna Schwarz MD on 11/16/2022 10:37 AM PST Station ID: [id number]
[2022-11-17 05:10] LABS: HBsAG SCREEN Negative (Negative); HCV AB 0.5 s/co ratio (0.0-0.9)
[2022-11-17 06:09] LABS: RPR Non Reactive (Non Reactive)
[2022-11-17 08:10] LABS: VARICELLA-ZOSTER AB IGG 1640 index (Immune >165)
[2022-11-18 00:07] LABS: HIV SCREEN 4TH GENERATION Non Reactive (Non Reactive)
== END 2022-11-16 07:03 | disposition home or self-care (01) ==
LOC: DI 07:02
PROVIDERS: ATTEND Obstetrics & Gynecology
DX: Z34.91 Encounter for supervision of normal pregnancy, unspecified, first trimester (principal)
CPT/HCPCS: 36415; 85025; 86592; 86762; 86787; 86803; 86850; 86900; 86901; 87340; 87389

== ENCOUNTER 2022-11-25 15:15 | Outpatient (CLI) | payer OTHER ==
[2022-11-25 21:39] LABS: CHLAMYDIA TRACHOMATIS DNA NEGATIVE (NEGATIVE); NEISSERIA GONORRHOEAE DNA NEGATIVE (NEGATIVE); TRICHOMONAS VAGINALIS DNA NEGATIVE (NEGATIVE)
== END 2022-11-25 15:16 | disposition home or self-care (01) ==
LOC: LAB.WC 15:15
PROVIDERS: ATTEND Nurse Practitioner
DX: Z34.90 Encounter for supervision of normal pregnancy, unspecified, unspecified trimester (principal); Z36.89 Encounter for other specified antenatal screening
CPT/HCPCS: 87086; 87491; 87591; 87661

== ENCOUNTER 2022-11-30 22:12 | Outpatient (CLI) | payer OTHER ==
--- NOTE | 2022-12-01 15:04 | Ultrasound Report ---
PROCEDURE: OB First Trimester INDICATIONS: SUBCHRONIC HEMATOMA OUTSIDE/PRIOR DATING DATA: Last menstrual period (LMP): 08/22/2022. LMP-based estimated date of delivery (JELLY): Unknown. First dating scan (date and location): 11/16/2022. Estimated date of delivery (JELLY) from first dating scan: 06/18/2023. The below data below was generated using the ultrasound JELLY of 06/18/2023 TECHNIQUE: Real-time scanning was performed of the fetus and maternal pelvic organs, with image documentation. COMPARISON: OB ultrasound 11/16/2022 FINDINGS: Embryo: Single live intrauterine is identified with crown-rump length measuring 5.4 cm cor responding to 12 weeks 0 days, compared to 11 weeks 3 days by initial ultrasound. Right-sided subchor ionic hemorrhage is present measuring 3.2 x 1.1 x 2.4 cm and left sided subchorionic hemorrhage is pr esent measuring 2.5 x 1.1 x 2.8 cm. There felt to be similar versus slightly increased in size. Howev er, it is noted at the are better visualized on current exam. Heart rate: 164 bpm Measurement variability in dating: +/- 4 weeks by LMP, +/- 7 days by mean sac diameter (use before 6 weeks gestation if crown-rump length not able to be measured), +/- 5 days by crown-rump length (6-12 weeks gestation). Maternal organs: Ovaries are unremarkable. IMPRESSION: Single intrauterine with ultrasound gestational age today of 12 weeks 0 days. Left and right subchorionic hemorrhages appearing similar versus slightly increased in size. Exact co mparison is difficult as they were not as well visualized secondary to less optimal visualization on prior exam. Reviewed by: Catrina Bean MD on 12/01/2022 3:02 PM PST Approved by: Catrina Bean MD on 12/01/2022 3:02 PM PST Station ID: [id number]
== END 2022-11-30 22:13 | disposition home or self-care (01) ==
LOC: DI 22:12
PROVIDERS: ATTEND Obstetrics & Gynecology
DX: O43.891 Other placental disorders, first trimester (principal); Z3A.12 12 weeks gestation of pregnancy